=== PATIENT | male | born 1960 | race Caucasian/White ===

== ENCOUNTER 2017-11-14 11:49 | Emergency (ER) | payer OTHER ==
[~2017-11-14] VITALS: Ht 182.9 cm; Wt 103.9 kg
[~2017-11-14 11:49] MED LIST: ANDROGEL2.5 GM TD; CHLORTHALIDONE25 MG PO; COLESTID5 GM PO; PERCOCET 5-3251 EACH PO; PERCOCET 7.5-31 EACH PO; POTASSIUM CITR15 MEQ PO; PYRIDIUM200 MG PO; TAMSULOSIN HCL0.4 MG PO
[2017-11-14] MEDS ORDERED: PREDNISONE20 MG PO (13:11)
== END 2017-11-14 13:32 | disposition home or self-care (01) ==
LOC: ED 11:49
DX: T78.3XXA Angioneurotic edema, initial encounter (principal); Z88.8 Allergy status to other drugs, medicaments and biological substances; Z79.899 Other long term (current) drug therapy
CPT/HCPCS: 87081; 87880; 99283; J7512

== ENCOUNTER 2018-02-11 06:35 | Day surgery (SDC) | payer OTHER ==
[~2018-02-11] VITALS: Ht 182.9 cm; Wt 104.8 kg
[~2018-02-11 06:35] MED LIST changes: +24 HOUR ALLERG9.9 ML NAS; +BENZONATATE100 MG PO; +PREDNISONE20 MG PO; +VENTOLIN HFA18 GM INH; +VITAMIN D35000 UNI1 PO
--- NOTE | 2018-02-11 08:02 | NUR ---
02/11/[address] @ TALKING WITH PATIENT. PATIENT OPENS EYES AND RESPONDS APPROPRIATELY TO DR AND FALLS QUICKLY BACK TO SLEEP.
--- NOTE | 2018-02-11 11:42 | NUR ---
CONNECTED WITH PT'S ANDRES. SHE WAS RELAXED AND SEEMED INFORMED AND WAS PLEASED THAT THEIR SCHEDULE WORKED OUT FOR THIS SCOPE BEFORE HER SCHOOL BEGINS LATER THIS MONTH. EXTENDED A BLESSING, WILL FOLLOW NEEDED
--- NOTE | 2018-02-11 14:56 | OR ---
[facility] [address], [place] [address] Signed DATE OF OPERATION: 02/11/2018 SURGEON: Luisana Zaragoza MD PREOPERATIVE DIAGNOSES: 1. History of polyps x3, 2017. 2. Two tubular adenomas. 3. Diverticulosis. POSTOPERATIVE DIAGNOSIS: Diverticulosis. No sign of recurrent or new polyps. PROCEDURE PERFORMED: Total colonoscopy to cecum. ANESTHESIA: Intravenous sedation fentanyl 150 mcg, Versed 5 mg. INDICATION: A 57-year-old white man, patient of Dr. Wadsworth, underwent colonoscopy in 2017, where he was found to have three polyps, two of them tubular adenomas. He is also noted to have diverticula. He is symptom free currently. He is here for colonoscopy. He understands the risks of bleeding, infection, and perforation. FINDINGS: The prep was excellent. Complete colonoscopy was undertaken of the cecum without question. There were several diverticula scattered throughout the colon with no sign of recurrent or new polyp. DESCRIPTION OF PROCEDURE: The patient was brought to the endoscopy suite and placed in lateral decubitus position given intravenous sedation to the point of slurred speech and nystagmus. Digital rectal examination was normal. An Olympus video colonoscope was passed in the rectum and manipulated throughout the colon ultimately intubating the cecum itself. The ileocecal valve and appendiceal orifice were normal. The scope was withdrawn from that point. Examination throughout undertaken showed no sign of abnormality other than a few diverticula scattered including the transverse, left and sigmoid areas. Retroflexed view of the rectum was normal. Scope was removed. The patient was taken to recovery room in good condition. Electronically Signed By: LUISANA ZARAGOZA MD 02/11/18 1456 PATIENT NAME: FREDERIC TEJADA OPERATIVE REPORT DATE OF : 58 REPORT #: [id number] PHYSICIAN: LUISANA ZARAGOZA MD PCP: STEPHANIE WADSWORTH MD REPORT IS CONFIDENTIAL AND NOT TO BE RELEASED WITHOUT AUTHORIZATION [facility] [address], [place] [address] Signed CONCLUDING DIAGNOSIS: Scattered diverticula. No evidence of polyps. PLAN: Repeat colonoscopy in 5 years, sooner if clinically indicated. He will return to the ongoing care of Dr. Wadsworth. MD SARINA Mg/MODL /[id number] cc: Stephanie Wadsworth MD Copies: STEPHANIE WADSWORTH MD ~ Electronically Signed By: LUISANA ZARAGOZA MD 02/11/18 1456 PATIENT NAME: FREDERIC TEJADA KVNG OPERATIVE REPORT DATE OF : 58 REPORT #: [id number] PHYSICIAN: LUISANA ZARAGOZA MD PCP: STEPHANIE WADSWORTH MD REPORT IS CONFIDENTIAL AND NOT TO BE RELEASED WITHOUT AUTHORIZATION
== END 2018-02-11 08:50 | disposition home or self-care (01) ==
LOC: OPS 06:35 → DS 06:35 → OPS 06:45 → DS 06:45 → OPS 08:50
PROVIDERS: Surgery
PROC: 0DJD8ZZ Inspection of Lower Intestinal Tract, Via Natural or Artificial Opening Endoscopic (ICD-10-PCS; principal; 2018-02-11 06:45)
DX: Z12.11 Encounter for screening for malignant neoplasm of colon (principal); K57.30 Diverticulosis of large intestine without perforation or abscess without bleeding; K21.9 Gastro-esophageal reflux disease without esophagitis; G47.30 Sleep apnea, unspecified; Z86.010 Personal history of colon polyps; Z87.19 Personal history of other diseases of the digestive system; Z98.890 Other specified postprocedural states; Z88.8 Allergy status to other drugs, medicaments and biological substances
CPT/HCPCS: 99153; G0500; J2250; J3010; J7120

== ENCOUNTER 2020-03-12 22:10 | Emergency (ER) | payer OTHER ==
[~2020-03-12] VITALS: Ht 182.9 cm; Wt 99.8 kg
--- OUTSIDE RECORDS SUMMARY | ~2020-03-12 | XMS | Clinical Summary ---
Demographics + + + | Address | [address] | | | [place] [address] | + + + | Home Phone | | + + + | Preferred Language | Unknown | + + + | Marital Status | | + + + | Methodist Affiliation | 1013 | + + + | Race | White | + + + | Ethnic Group | Not or | + + + Author + + + | Author | [facility] | | | and [place] | + + + | Organization | [facility] | | | and [place] | + + + | Address | Unknown | + + + | Phone | Unavailable | + + + Support + + +---------+ + | Name | Relationship | Address | Phone | + + +---------+ + | Adriana Chivo Garcia | ECON | Unknown | | + + +---------+ + Care Team Providers + +------+ + | Care Procurement Director Name | Role | Phone | + +------+ + | Isai Wadsworth | PCP | | | MD | | | + +------+ + Allergies Not on File Medications Not on file Active Problems Not on file Social History + +-------+ +--------+------+ | Tobacco Use | Types | Packs/Day | Years | Date | | | | | Used | | + +-------+ +--------+------+ | Never Assessed | | | | | + +-------+ +--------+------+ + + + | Sex Assigned at | Date Recorded | | | | + + + | Not on file | | + + + Last Filed Vital Signs Not on file Plan of Treatment + + +-------+ + | Health Maintenance | Due Date | Last | Comments | | | | Done | | + + +-------+ + | Vaccine: | | | | | Dtap/Tdap/Td (1 - | 8 | | | | Tdap) | | | | + + +-------+ + | Vaccine: Zoster (1 | | | | | of 2) | 9 | | | + + +-------+ + | Vaccine: Influenza | | | | | (#1) | 0 | | | + + +-------+ + Results Not on filefrom Last 3 Months Insurance +-------+--------+ +--------+ + +------+ | Payer | Benefi | Subscriber | Effect | Phone | Address | Type | | | t Plan | ID | emory | | | | | | / | | Dates | | | | | | Group | | | | | | +-------+--------+ +--------+ + +------+ | MODA | MODA | [id number] | | [phone] | [address] | PPO | | | [place] | | [phone] | [phone] | | | | [place] | | esent | | [facility] | | | | [place] | | | | [place] [address] | | +-------+--------+ +--------+ + +------+ + +--------+ +--------+ + + | Guarantor Name | Accoun | Relation to | Date | Phone | Billing Address | | | t Type | Patient | of | | | | | | | | | | + +--------+ +--------+ + + | Shaquille Garcia | Person | Self [birth year] | [address] | | | al/Fam | | 1959 | [phone] | [place] | | | [place] | | | 8 (Home) | [address] | | | | | | [phone] | | | | | | | 1 (Work) | | + +--------+ +--------+ + + | Shaquille Garcia | Person | Self [birth year] | [address] | | | al/Fam | | 1959 | [phone] | [place] | | | [place] | | | 8 (Home) | [address] | + +--------+ +--------+ + + Advance Directives + + + + + | Type | Date Recorded | Patient | Explanation | | | | Mis Director | | + + + + + | Power of | | | | | Wirer Passenger Car | | | | + + + + + | Advance | | | | | Directive | | | | + + + + +"
--- OUTSIDE RECORDS SUMMARY | ~2020-03-12 | XMS | Clinical Summary ---
Demographics + + + | Address | [address] | | | [place] [address] | + + + | Home Phone | | + + + | Preferred Language | Unknown | + + + | Marital Status | | + + + | Zoroastrianism Affiliation | Unknown | + + + | Race | Unknown | + + + | Ethnic Group | Other Race | + + + Author + + + | Author | [facility] | + + + | Organization | [facility] | + + + | Address | Unknown | + + + | Phone | Unavailable | + + + Support + + +---------+ + | Name | Relationship | Address | Phone | + + +---------+ + | Riana Garcia | ECON | Unknown | | + + +---------+ + Care Team Providers + +------+ + | Care Field Adjuster Name | Role | Phone | + +------+ + | Isai Wadsworth MD | PCP | | + +------+ + Source Comments ANSLEY is fully live on both [facility] and [facility] Allergies Not on File Medications Not on [...] Signs Not on file Plan of Treatment +--------+---------+ + + + | Date | Type | Specialty | Care Team | Description | +--------+---------+ + + + | 03/26/ | Office | Cardiology | Buster Adan, | | | 2019 | Visit | | [address] | | | | | | [address] | | | | | | [place], [place] | | | | | | [address] | | | | | | [phone] | | | | | | | | +--------+---------+ + + + + + +-------+ + | Health Maintenance | Due Date | Last | Comments | | | | Done | | + + +-------+ + | Influenza (Flu) | | | | | vaccination (#1) | 0 | | | + + +-------+ + | Pneumococcal | Aged Out | | No longer eligible based on patient's age | | vaccination | | | to complete this topic | + + +-------+ + Results Not on filefrom Last 3 Months Insurance + +--------+ +--------+ + +------+ | Payer | Benefi | Subscriber | Effect | Phone | Address | Type | | | t Plan | ID | emory | | | | | | / | | Dates | | | | | | Group | | | | | | + +--------+ +--------+ + +------+ | MODA [employer] | MODA | [id number] | | [phone] | [address] | PPO | | | [place] | | [phone] | [phone] | | | | [place] | | esent | | [place], | | | | [place] | | | | [place] [address] | | + +--------+ +--------+ + +------+ + +--------+ +--------+ + + | Guarantor Name | Accoun | Relation to | Date | Phone | Billing Address | | | t Type | Patient | of | | | | | | | | | | + +--------+ +--------+ + + | Shaquille Garcia | Person | Self [birth year] | [address] | | | al/[place] | | 1959 | [phone] | [place] | | | [place] | | | 8 (Home) | [address] | | | | | | [phone] | | | | | | | 1 (Work) | | + +--------+ +--------+ + +"
--- OUTSIDE RECORDS SUMMARY | ~2020-03-12 | XMS | Encounter Summary ---
Demographics + + + | Address | [address] | | | [place] [address] | + + + | Home Phone | | + + + | Preferred Language | Unknown | + + + | Marital Status | | + + + | Sikhism Affiliation | 1013 | + + + | Race | White | + + + | Ethnic Group | Not or | + + + Author + + + | Author | [facility] | | | and [place] | + + + | Organization | [facility] | | | and [place] | + + + | Address | Unknown | + + + | Phone | Unavailable | + + + Support + + +---------+ + | Name | Relationship | Address | Phone | + + +---------+ + | Adriana Garcia | ECON | Unknown | | + + +---------+ + Care Team Providers + +------+ + | Care Conditioning Room Worker Name | Role | Phone | + +------+ + PCP | Unavailable | + +------+ + Encounter Details +--------+ + + + + | Date | Type | Department | Care Team | Description | +--------+ + + + + | 03/26/ | [facility] | [facility] | [facility] [place], | | | 2004 | Encounter | MED CTR XRAY [address] | | | | | [place] | [place] | | | | | [place] [address] | [address] | | | | | [phone] | | | +--------+ + + + + Social History + +-------+ +--------+------+ | Tobacco [...] on file | | + + + documented as of this encounter Plan of Treatment Not on filedocumented as of this encounter Visit Diagnoses Not on filedocumented in this encounter"
== END 2020-03-13 00:28 | disposition home or self-care (01) ==
LOC: ED 22:10
DX: N20.0 Calculus of kidney (principal); R31.9 Hematuria, unspecified; Z87.442 Personal history of urinary calculi; Z88.8 Allergy status to other drugs, medicaments and biological substances; Z79.899 Other long term (current) drug therapy
CPT/HCPCS: 74177; 80053; 81001; 85025; 99284-25; Q9967

== ENCOUNTER 2022-01-09 07:00 | Day surgery (SDC) | payer OTHER ==
[~2022-01-09] VITALS: Ht 182.9 cm; Wt 101.8 kg
[~2022-01-09 07:00] MED LIST changes: +CHOLEST OFF PL450 MG PO; +CRESTOR5 MG PO; +FLOMAX0.4 MG PO; +LOSARTAN POTAS100 MG PO; +NASAL DECONGEST10 MG PO; +TOPROL XL25 MG PO
[2022-01-09] MEDS ORDERED: ADULT LOW DOSE81 MG PO (07:20)
--- NOTE | 2022-01-09 09:44 | NUR ---
PT ALERT, ORIENTED AND SUPPORTED BY HIS ANDRES. PT IS IN SOME PAIN, READY TO HAVE STONE REMOVED. 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 REFERRED TO ANODE WORKER LUISANA WHEN HE VISITS AND MAY WANT TO FOLLOW UP ON PREVIOUS BILLING THAT INS WOULDN'T COVER. HAD PRAYER, GAVE BLESSING AND ENCOURAGEMENT. WILL FOLLOW NEEDED
--- NOTE | 2022-01-09 11:29 | NUR ---
01/09/22 1129 Nichelle Handley 1102 PT ARRIVED IN PACU NON RESPONSIVE TO NOXIOUS STIMULI WITH OPA IN PLACE. CHIN LIFT HELD BY RN. 1116 PT REACTIVE. OPA REMOVED.
--- NOTE | 2022-01-09 13:49 | NUR ---
1210 PATIENT BACK FROM PACU. REPORT RECIEVED FROM LOIDA VILLEDA. PATIENT BREATHING EQUAL AND UNLABORED. OXYGEN SATURATIONS ABOVE 95% ON ROOM AIR. NO DRAINAGE AT SURGICAL SITE. PATIENT COMPLAINS OF PAIN AT SURGICAL SITE DENIES NEEDING ANYTHING AT THIS TIME FOR PAIN. AT BEDSIDE. 1215 PATIENT DRINKING WATER AND EATING CRACKERS. 1300 PATIENT UP TO THE BATHROOM TO VOID. RED AND CLEAR URINE. PATIENT AMBULATED AND TOLERATED IT WELL. COMPLAINING OF PAIN WHILE VOIDED. PRN AZO PAIN. AT BEDSIDE NO QUESTIONS AT THIS TIME.
--- NOTE | 2022-01-09 14:10 | NUR ---
CONNECTING WITH PT AND SPOUSE ANDRES POST-OP. PT JUST BACK FROM [place]-HAS SOME PAIN-SAID HE IS A LITTLE DIZZY. GAVE ENCOURAGEMENT, AND INFORMED THEM TO BE SURE THEY UNDERSTAND HOME INSTRUCTIONS AT [place]. THEY BOTH ACKNOWLEDGE. WILL FOLLOW NEEDED
--- NOTE | 2022-01-09 15:04 | NUR ---
1340 VITAL SIGNS COMPLETE. PATIENT IS ALERT AND ORIENTED. BREATHING EQUAL AND UNLABORED. PATIENT OXYGEN SATURATIONS ABOVE 95%. SURGICAL SITE HAS NO DRAINAGE. PATIENT STATES PAIN IS IMPROVING. DENIES ANY NAUSEA. AT BEDSIDE. 1410 PATIENT HAS MET DISCHARGE CRITERIA. UNDERSTOOD INSTRUCTIONS AND HAD NO QUESTIONS. IV D/C'D. NO QUESTIONS AT THIS TIME. PATIENT DRESSED SELF AND WAS WHEELED OUT OF FACILITY WITH PRESENT.
--- NOTE | 2022-01-10 19:41 | OR ---
[facility] [address] [facility] [place] [place] [address] Signed DATE OF OPERATION: 01/09/2022 SURGEON: Merry Vela MD PREOPERATIVE DIAGNOSES: 1. A 5 mm left ureteropelvic junction calculus. 2. Persistent and severe left-sided flank pain. POSTOPERATIVE DIAGNOSES: 1. A 5 mm left ureteropelvic junction calculus. 2. Persistent and severe left-sided flank pain. NAMES OF PROCEDURES: 1. Diagnostic cystoscopy with left retrograde pyelogram. 2. Left nephroureteroscopy with laser lithotripsy and basket extraction of stone fragments. 3. Insertion of a 6 x 26 cm double-J ureteral stent into the left collecting system. ANESTHESIA: General. ESTIMATED BLOOD LOSS: Minimal. COMPLICATIONS: None. SPECIMENS: Fragments of two 5 mm stones sent to the lab for stone analysis. DRAINS: A 6 x 26 double-J ureteral stent inserted into the left collecting system. INDICATIONS FOR PROCEDURE: Mr. Tejada is a very pleasant 61-year-old gentleman with a previous history of nephrolithiasis, who presented to my clinic a few days ago with severe left-sided flank pain and nausea and vomiting. He reported sudden onset flank pain earlier last week and underwent a CT scan, which revealed a 5 mm calculus at the level of the UPJ and poised to descend into the left ureter. There was no evidence of any active obstruction or hydronephrosis at the time of the CT scan. The patient initially attempted a voiding Electronically Signed By: MERRY VELA MD 01/10/221940 PATIENT NAME: FREDERIC TEJADA OPERATIVE REPORT DATE OF : 58 REPORT #: [id number] PHYSICIAN: MERRY VELA MD PCP: MAJO JULES MD REPORT IS CONFIDENTIAL AND NOT TO BE RELEASED WITHOUT AUTHORIZATION [facility] [address] [place], [place] [address] Signed trial with Flomax and NSAIDs. However, this was unsuccessful. Overall, he is uncomfortable taking oral narcotic medication and has been attempting to pass the stone with [id number] medications. He is scheduled to go on a work trip in [place] in approximately two weeks, so by the time he saw me in clinic, he was requesting extraction of his left ureteropelvic junction calculus. After discussion of the risks and benefits of the procedure, he agreed to proceed. FINDINGS: On cystoscopy, there was no evidence of any suspicious masses, lesions, or stones. Bilateral ureteral orifices are in their normal anatomic location. I do not appreciate any active efflux from either ureter. There is no evidence of any bladder wall trabeculation. Left retrograde pyelogram revealed a patent left ureter and left UPJ. Presumably, at this time, the stone has been pushed back into the left renal pelvis which is where it was initially found on ureteroscopy. There are no other filling defects or any calyceal abnormalities noted on the retrograde pyelogram. Left flexible nephroscopy revealed the presence of a 5 mm stone within the left renal pelvis. Another stone also measuring around 5 mm was noted in the mid pole calyx. Both stones were fragmented using a holmium laser at 8 and 1 settings. 100% of the stone burden was successfully extracted from the patient's left kidney during today's procedure. At the end of the procedure, a 6 x 26 cm double-J ureteral stent was inserted into the left ureter under direct visualization. DESCRIPTION OF PROCEDURE: After informed consent was obtained, the patient was taken back to the operating room. He was transferred from the [facility] to the operating room table, where general anesthesia was induced. He was placed in the dorsal lithotomy position and his genitalia were prepped and draped in a standard sterile fashion. Using a 30-degree lens on a 22.5-Israeli introducer, a rigid cystoscope was inserted through his urethra and into his bladder under direct visualization. Panendoscopic views of the bladder were then obtained. Please see the above findings. Attention was then turned to the left ureteral orifice. A cone-tipped catheter was advanced up to the level of the left ureteral orifice and a left retrograde pyelogram was performed. Please see above findings. I then passed a 0.035 Sensor wire through the left ureter and up into the left collecting system without difficulty. Adequate placement of the wire was confirmed on fluoroscopy. Over the wire, I passed a 11/ ureteral access sheath into the left ureter, again without difficulty. Fluoroscopy confirmed adequate placement of the sheath and I was able to repeat a left retrograde pyelogram. The wire was then removed and then I advanced a flexible ureteroscope up into the left proximal ureter and left renal pelvis. A thorough diagnostic nephroscopy was performed. I visualized a 5 mm Electronically Signed By: MERRY VELA MD 01/10/221940 PATIENT NAME: FREDERIC TEJADA OPERATIVE REPORT DATE OF : 58 REPORT #: [id number] PHYSICIAN: MERRY VELA MD PCP: MAJO JULES MD REPORT IS CONFIDENTIAL AND NOT TO BE RELEASED WITHOUT AUTHORIZATION [address] [address] Signed stone within the left renal pelvis proper along with another approximately 4 to 5 mm stone within the mid pole calyx on the left side. Both stones were fragmented using a holmium laser with only [id number] difficulty. Laser settings were 8 hertz and 1 joule, using a 270 micron fiber. Once fragmentation was complete, all of the stone fragments were successfully extracted from the left kidney using a Zero tip basket. 100% of the stone burden was successfully extracted today. I removed the ureteroscope and left the sheath in place. I inserted a 0.035 Sensor wire through the sheath and into the left renal pelvis. The sheath was then removed fully intact. Over the wire, I passed a 6 x 26 cm double-J ureteral stent into the left collecting system under direct visualization without difficulty. Once I pulled the wire, an adequate proximal coil was seen within the left renal pelvis. An adequate distal coil was seen on cystoscopy. The ureteral stent was placed with a string attached. The string was attached to the external genitalia using Mastisol and Steri-Strips. The patient's bladder was then drained and the cystoscope was removed. The procedure was then terminated. The patient tolerated the procedure well without any complication. He will now be transferred to the postanesthesia care unit in stable condition. DISPOSITION: I discussed the details of today's procedure with the patient's and answered all of her questions. I did notify her that all of the stone burden was successfully extracted from the patient's kidney today and that he will need to remove his indwelling stent using the string attached in five days, which would be January 14, 2022. He will be sent home today with a few additional oxycodone pills, although he never filled the initial prescription I gave him for the oxycodone 5 mg. More than anything else, I told the that he does need to take the Levaquin 500 mg p.o. daily for the next seven days to prevent risk of surgery and/or ureteroscopy related UTI. He will be scheduled return to clinic to see me postoperatively in approximately two months, at that time, we will discuss the results of his stone analysis.. MD ISA Carranza/MODL /[id number] Electronically Signed By: MERRY VELA MD 01/10/221940 PATIENT NAME: FREDERIC TEJADA OPERATIVE REPORT DATE OF : 58 REPORT #: [id number] PHYSICIAN: MERRY VELA MD PCP: MAJO JULES MD REPORT IS CONFIDENTIAL AND NOT TO BE RELEASED WITHOUT AUTHORIZATION [facility] [address] [place] [address] Signed Copies: ~ Electronically Signed By: MERRY VELA MD 01/10/221940 PATIENT NAME: FREDERIC TEJADA OPERATIVE REPORT DATE OF : 58 REPORT #: [id number] PHYSICIAN: MERRY VELA MD PCP: MAJO JULES MD REPORT IS CONFIDENTIAL AND NOT TO BE RELEASED WITHOUT AUTHORIZATION
== END 2022-01-09 14:10 | disposition home or self-care (01) ==
LOC: DS 07:00
PROVIDERS: ATTEND Urology
PROC: 0TC48ZZ Extirpation of Matter from Left Kidney Pelvis, Via Natural or Artificial Opening Endoscopic (ICD-10-PCS; principal; 2022-01-09 09:40)
PROC: 0T778DZ Dilation of Left Ureter with Intraluminal Device, Via Natural or Artificial Opening Endoscopic (ICD-10-PCS; 2022-01-09 09:40)
DX: N20.2 Calculus of kidney with calculus of ureter (principal); Z88.8 Allergy status to other drugs, medicaments and biological substances
CPT/HCPCS: 74420; 82365; C1769; C2617; J0461; J0696; J1100; J1160; J1885; J2250; J2405; J2704; J2765; J3010; J7121; Q9967

== ENCOUNTER 2022-01-16 12:09 | Emergency (ER) | payer OTHER ==
[~2022-01-16] VITALS: Ht 182.9 cm; Wt 101.6 kg
[~2022-01-16 12:09] MED LIST changes: +ADULT LOW DOSE81 MG PO
[2022-01-16] MEDS ORDERED: LEVOFLOXACIN500 MG PO (12:33)
--- OUTSIDE RECORDS SUMMARY | 2022-01-16 16:40 | XMS ---
PreManage Notification: FREDERIC TEJADA Security Surveying Or Spatial Science Technician Events No recent Security Events currently on file CRITERIA MET - ALEJANDRINAP CARE PROVIDERS FREDERIC TIJERINA [facility] Current PHONE: [phone] Haley has no Care Guidelines for this patient. EDemarco VISIT COUNT (12 MO.) 1 [place] [place] TOTAL 1 NOTE: Visits indicate total known visits. ED/UCC VISIT TRACKING (12 MO.) 01/16/2022 12:10 [facility] [place] TYPE: Emergency COMPLAINT: - POST OP PROBLEM INPATIENT VISIT TRACKING (12 MO.) No inpatient visits to display in this time frame [email or web address]
== END 2022-01-16 15:09 | disposition home or self-care (01) ==
LOC: ED 12:09
DX: U07.1 COVID-19 (principal); Z88.8 Allergy status to other drugs, medicaments and biological substances; Z79.899 Other long term (current) drug therapy; Z79.82 Long term (current) use of aspirin; Z87.442 Personal history of urinary calculi
CPT/HCPCS: 81001; 87502; 99283; C9803; U0003

== ENCOUNTER 2022-07-04 13:06 | Day surgery (SDC) | payer OTHER ==
[~2022-07-04] VITALS: Ht 182.9 cm; Wt 104.5 kg
[~2022-07-04 13:06] MED LIST changes: +AEROCHAMBER PL1 EAC2 INH; +LEVOFLOXACIN500 MG PO
--- NOTE | 2022-07-04 16:05 | NUR ---
07/04/22 1605 Nichelle Handley 1411 PT ARRIVED IN PACU SLEEPY WITH NO C/O'S. ABD SOFT AND PASSING FLATUS. [address] AT BEDSIDE. 1500 SITTING UP IN BED SIPPING ON WATER. 1515 GETTING DRESSED. 1525 DC INSTRUCTIONS GIVEN. ALL QUESTIONS ANSWERED. LEFT VIA W/C.
--- NOTE | 2022-07-04 16:27 | OR ---
[facility] [address], [place] [address] Signed DATE OF OPERATION: 07/04/2022 SURGEON: Liusana Zaragoza MD PREOPERATIVE DIAGNOSES: 1. Colon screening. 2. Posterior thoracic inflamed epidermal inclusion cyst. POSTOPERATIVE DIAGNOSES: 1. Small polyp of rectosigmoid (excised). 2. Sigmoid diverticulosis. PROCEDURE: Total colonoscopy to cecum with intubation of ileum and cold morcellation polypectomy x1. ANESTHESIA: Intravenous sedation, fentanyl 100 mcg and Versed 8 mg. INDICATIONS: This 62-year-old white man is a patient of Dr. Frederic Tijerina. He underwent colonoscopy in 2017, where he was found to have a tubular adenoma. Subsequent colonoscopy in 2018 was normal. He is symptom free, but surveillance colonoscopy has been recommended. He has no symptoms of bleeding, diarrhea, or constipation. The patient is additionally noted inflammation and irritation of an area of his posterior thorax in the superior aspect. Clinical examination shows an inflamed epidermal inclusion cyst with mild fluctuance in the central portion. This will be addressed at a later date (tomorrow). DESCRIPTION OF PROCEDURE: The patient was brought to the endoscopy suite and placed in lateral decubitus position given intravenous sedation to the point of slurred speech and nystagmus. Digital rectal examination was normal. An Olympus video colonoscope was passed per rectum and manipulated throughout the colon, noting diverticular change of the sigmoid. The scope was then advanced to the cecum. The ileocecal valve and appendiceal orifice were normal. The ileum was intubated without problem and the ileal mucosa was normal as well. The scope was then withdrawn. Examination throughout showed no sign of abnormality other than a few scattered diverticula. The rectosigmoid was a very small adenomatous appearing polyp. This was Electronically Signed By: LUISANA ZARAGOZA MD 07/04/22 1627 PATIENT NAME: FREDERIC TEJADA OPERATIVE REPORT DATE OF : 58 REPORT #: [id number] PHYSICIAN: LUISANA ZARAGOZA MD PCP: FREDERIC TIJERINA MD REPORT IS CONFIDENTIAL AND NOT TO BE RELEASED WITHOUT AUTHORIZATION [facility] [address], [place] [address] Signed excised with cold morcellation technique. Further withdrawal showed no other findings of concern. The scope was removed. The patient was taken to the recovery room in good condition. CONCLUDING DIAGNOSES: 1. Polyps x1, rectosigmoid, excised. 2. Diverticulosis (minimal). 3. Epidermal inclusion cyst with infection and probable abscess formation with central fluctuance. PLAN: We will see him in the office tomorrow at approximately 01:30, at which time incision and drainage of the abscess to be undertaken. The patient is already self medicated with cephalexin. He will put a moist heat on the site today and tonight and we will deal with epidermal inclusion cyst tomorrow in the office. We will repeat colonoscopy in 5 years or sooner if clinically indicated based on symptoms and signs, and he should maintain a high-fiber diet. MD SARINA Mg/ANIRUDH /[id number] cc: Frederic Tijerina MD Copies: FREDERIC TIJERINA DMD ~ Electronically Signed By: LUISANA ZARAGOZA MD 07/04/22 1627 PATIENT NAME: FREDERIC TEJADA OPERATIVE REPORT DATE OF : 58 REPORT #: [id number] PHYSICIAN: LUISANA ZARAGOZA MD PCP: FREDERIC TIJERINA MD REPORT IS CONFIDENTIAL AND NOT TO BE RELEASED WITHOUT AUTHORIZATION
== END 2022-07-04 15:25 | disposition home or self-care (01) ==
LOC: DS 13:06 → OPS 13:06 → DS 14:00 → OPS 15:25
PROVIDERS: ATTEND Surgery
PROC: 0DBB8ZX Excision of Ileum, Via Natural or Artificial Opening Endoscopic, Diagnostic (ICD-10-PCS; principal; 2022-07-04 13:45)
DX: Z12.11 Encounter for screening for malignant neoplasm of colon (principal); M79.89 Other specified soft tissue disorders; K63.5 Polyp of colon; K57.30 Diverticulosis of large intestine without perforation or abscess without bleeding; Z86.010 Personal history of colon polyps; Z87.19 Personal history of other diseases of the digestive system; Z88.8 Allergy status to other drugs, medicaments and biological substances
CPT/HCPCS: 99153; G0500; J2250; J3010; J7121

== ENCOUNTER 2023-01-11 14:50 | Emergency (ER) | payer OTHER ==
--- OUTSIDE RECORDS SUMMARY | ~2023-01-11 | XMS | Continuity of Care Document ---
Demographics + + + | Address | [address] | | | [place] [address] | + + + | Preferred Language | Unknown | + + + | Marital Status | | + + + | Latter Day Affiliation | Unknown | + + + | Race | White | + + + | Ethnic Group | Not or | + + + Author + + + | Author | [facility] | + + + | Organization | [facility] | + + + | Address | [address] | | | [place] [address] | + + + | Phone | | + + + Care Team Providers + + + + | Care Firmware Engineer Name | Role | Phone | + + + + Unavailable | Unavailable | + + + + Unavailable | Unavailable | + + + + Unavailable | Unavailable | + + + + Unavailable | Unavailable | + + + + Unavailable | Unavailable | + + + + Unavailable | Unavailable | + + + + Allergies and Intolerances + + + + + + | date | description | facility | reaction | severity | + + + + + + | (no date) | Terfenadine | [facility] | (no reaction) | (no severity) | | | | [facility] | | | + + + + + + | (no date) | Terfenadine | [facility] | (no reaction) | (no severity) | | | | [facility] | | | + + + + + + | (no date) | terfenadine | [facility] | (no reaction) | (no severity) | | | | [facility] | | | + + + + + + | (no date) | Terfenadine | [facility] | (no reaction) | (no severity) | | | | [facility] | | | + + + + + + | (no date) | TERFENADINE | [facility] | (no reaction) | (no severity) | | | [facility] | | | + + + + + + Encounters No information. Functional Status No information. Immunizations No information. Medications + + + + | date | description | facility | + + + + | 2022-01-12 00:00 | COLESTIPOL HCL | [facility] | + + + + | 2022-01-16 00:00 | COLESTIPOL HCL | [facility] | + + + + | 2013-05-20 00:00 | OXYCODONE | [facility] | | | HCL/ACETAMINOPHEN | | + + + + | 2013-05-20 00:00 | OXYCODONE | [facility] | | | HCL/ACETAMINOPHEN | | + + + + | 2013-05-20 00:00 | OXYCODONE | [facility] | | | HCL/ACETAMINOPHEN | | + + + + | 2022-01-12 00:00 | OXYCODONE | [facility] | | | HCL/ACETAMINOPHEN | | + + + + | 2022-01-16 00:00 | OXYCODONE | [facility] | | | HCL/ACETAMINOPHEN | | + + + + | 2022-07-04 00:00 | OXYCODONE | [facility] | | | HCL/ACETAMINOPHEN | | + + + + | 2022-01-12 00:00 | OXYCODONE | [facility] | | | HCL/ACETAMINOPHEN | | + + + + | 2022-01-16 00:00 | OXYCODONE | [facility] | | | HCL/ACETAMINOPHEN | | + + + + | 2022-07-04 00:00 | OXYCODONE | [facility] | | | HCL/ACETAMINOPHEN | | + + + + | 2022-01-12 00:00 | PLANT STANOL MONY | [facility] | + + + + | 2022-01-16 00:00 | PLANT STANOL MONY | [facility] | + + + + | 2022-01-12 00:00 | Fluticasone Propionate | [facility] | + + + + | 2022-01-16 00:00 | Fluticasone Propionate | [facility] | + + + + | 2022-07-04 00:00 | Fluticasone Propionate | [facility] | + + + + | 2022-01-12 00:00 | BENZONATATE | [facility] | + + + + | 2022-01-16 00:00 | BENZONATATE | [facility] | + + + + | 2022-07-04 00:00 | BENZONATATE | [facility] | + + + + | 2022-01-12 00:00 | CHLORTHALIDONE | [facility] | + + + + | 2022-01-16 00:00 | CHLORTHALIDONE | [facility] | + + + + | 2022-07-04 00:00 | CHLORTHALIDONE | [facility] | + + + + | 2022-01-16 00:00 | LEVOFLOXACIN | [facility] | + + + + | 2022-01-12 00:00 | ASPIRIN | [facility] | + + + + | 2022-01-16 00:00 | ASPIRIN | [facility] | + + + + | 2017-11-14 00:00 | predniSONE | [facility] | + + + + | 2017-11-14 00:00 | predniSONE | [facility] | + + + + | 2017-11-14 00:00 | predniSONE | [facility] | + + + + | 2022-01-12 00:00 | CHOLECALCIFEROL (VITAMIN | [facility] | | | D3) | | + + + + | 2022-01-16 00:00 | CHOLECALCIFEROL (VITAMIN | [facility] | | | D3) | | + + + + | 2022-07-04 00:00 | CHOLECALCIFEROL (VITAMIN | [facility] | | | D3) | | + + + + | 2022-01-12 00:00 | ALBUTEROL SULFATE | [facility] | + + + + | 2022-01-16 00:00 | ALBUTEROL SULFATE | [facility] | + + + + | 2022-07-04 00:00 | ALBUTEROL SULFATE | [facility] | + + + + | 2022-01-12 00:00 | ROSUVASTATIN CALCIUM | [facility] | + + + + | 2022-01-16 00:00 | ROSUVASTATIN CALCIUM | [facility] | + + + + | 2022-07-04 00:00 | ROSUVASTATIN CALCIUM | [facility] | + + + + | 2022-01-12 00:00 | TAMSULOSIN HCL | [facility] | + + + + | 2022-01-16 00:00 | TAMSULOSIN HCL | [facility] | + + + + | 2022-07-04 00:00 | TAMSULOSIN HCL | [facility] | + + + + | 2022-01-12 00:00 | TAMSULOSIN HCL | [facility] | + + + + | 2022-01-16 00:00 | TAMSULOSIN HCL | [facility] | + + + + | 2022-07-04 00:00 | TAMSULOSIN HCL | [facility] | + + + + | 2022-01-12 00:00 | METOPROLOL SUCCINATE | [facility] | + + + + | 2022-01-16 00:00 | METOPROLOL SUCCINATE | [facility] | + + + + | 2022-07-04 00:00 | METOPROLOL SUCCINATE | [facility] | + + + + | 2022-01-12 00:00 | POTASSIUM CITRATE | [facility] | + + + + | 2022-01-16 00:00 | POTASSIUM CITRATE | [facility] | + + + + | 2022-07-04 00:00 | POTASSIUM CITRATE | [facility] | + + + + | 2022-01-12 00:00 | LOSARTAN POTASSIUM | [facility] | + + + + | 2022-01-16 00:00 | LOSARTAN POTASSIUM | [facility] | + + + + | 2022-07-04 00:00 | LOSARTAN POTASSIUM | [facility] | + + + + Problems + + + + | date | description | facility | + + + + | 2014-09-25 00:00 | Dyspnea | [facility] | + + + + | 2014-09-25 00:00 | Dyspnea | [facility] | + + + + | 2014-09-25 00:00 | Dyspnea | [facility] | + + + + | 2014-09-25 00:00 | Abdominal bloating | [facility] | + + + + | 2014-09-25 00:00 | Abdominal bloating | [facility] | + + + + | 2014-09-25 00:00 | Abdominal bloating | [facility] | + + + + | 2014-09-25 00:00 | Weakness | [facility] | + + + + | 2014-09-25 00:00 | Weakness | [facility] | + + + + | 2014-09-25 00:00 | Weakness | [facility] | + + + + | 2020-03-13 00:00 | Calculus of left kidney | [facility] | + + + + | 2020-03-13 00:00 | Calculus of left kidney | [facility] | + + + + | 2020-03-13 00:00 | Calculus of left kidney | [facility] | + + + + | 2020-03-13 00:00 | Painless hematuria | [facility] | + + + + | 2020-03-13 00:00 | Painless hematuria | [facility] | + + + + | 2020-03-13 00:00 | Painless hematuria | [facility] | + + + + | 2021-06-22 10:36:28 | Cardiomyopathy, | [facility] | | | unspecified | | + + + + | 2022-01-16 00:00 | Infection due to severe | [facility] | | | acute respiratory syndrome | | | | coronavirus 2 (SARS-CoV-2) | | + + + + | 2022-01-16 00:00 | Infection due to severe | [facility] | | | acute respiratory syndrome | | | | coronavirus 2 (SARS-CoV-2) | | + + + + Procedures + + + + | date | description | facility | + + + + | 2022-01-09 00:00 | DILATION OF LEFT URETER | [facility] | | | WITH INTRALUMINAL DEVICE, | | | | ENDO | | + + + + | 2022-01-09 00:00 | DILATION OF LEFT URETER | [facility] | | | WITH INTRALUMINAL DEVICE, | | | | ENDO | | + + + + | 2022-01-09 00:00 | EXTIRPATION OF MATTER FROM | [facility] | | | LEFT KIDNEY PELVIS, ENDO | | + + + + | 2022-01-09 00:00 | EXTIRPATION OF MATTER FROM | [facility] | | | LEFT KIDNEY PELVIS, ENDO | | + + + + | 2022-01-09 00:00 | CYSTO/URETERO | [facility] | | | W/LITHOTRIPSY | | + + + + | 2022-01-09 00:00 | CYSTO/URETERO | [facility] | | | W/LITHOTRIPSY | | + + + + Results/Labs +--------+--------+ +---------+--------+---------+ | test | date | facility | value | unit | notes | +--------+--------+ +---------+--------+---------+ + + | Result panel 1 | + + + + +-------+ + + + | | 2021-06-22 | [facility] | (missing) | (missing) | (missing) | | (unavailable | 11:09:48 | | | | | | ) | | | | | | + + +-------+ + + + | | 2021-06-22 | [facility] | 1. Normal | (missing) | (missing) | | (unavailable | 11:09:48 | | LV size with | | | | ) | | | low-normal | | | | | | | global LV | | | | | | | systolic | | | | | | | dysfunction. | | | | | | | | | | + + +-------+ + + + | | 2021-06-22 | [facility] | [address] | (missing) | (missing) | | (unavailable | [address] | | Street | | | | ) | | | | | | + + +-------+ + + + | | 2021-06-22 | [facility] | 2. | (missing) | (missing) | | (unavailable | ::48 | | Paradoxical | | | | ) | | | septal | | | | | | | motion | | | | | | | consistent | | | | | | | with the | | | | | | | patient's | | | | | | | bundle | | | + + +-------+ + + + | | 2021-06-22 | [facility] | 2021-06-22 | (missing) | (missing) | | (unavailable | 11:09:48 | | 18:13:55 PST | | | | ) | | | | | | + + +-------+ + + + | | 2021-06-22 | [facility] | 2D/M Mode | (missing) | (missing) | | (unavailable | 11:09:48 | | | | | | ) | | | | | | + + +-------+ + + + | | 2021-06-22 | [facility] | 3. Mild | (missing) | (missing) | | (unavailable | :09:48 | | left atrial | | | | ) | | | enlargement. | | | | | | | | | | + + +-------+ + + + | | 2021-06-22 | [facility] | 4. Mild | (missing) | (missing) | | (unavailable | :09:48 | | aortic valve | | | | ) | | | | | | | | | | regurgitatio | | | | | | | n. | | | + + +-------+ + + + | | 2021-06-22 | [facility] | 5. Normal | (missing) | (missing) | | (unavailable | 11:09:48 | | right atrial | | | | ) | | | pressure | | | | | | | estimate. | | | + + +-------+ + + + | | 2021-06-22 | [facility] | | (missing) | (missing) | | (unavailable | 11::48 | | [phone] | | | | ) | | | | | | + + +-------+ + + + | | 2021-06-22 | [facility] | 6. Compared | (missing) | (missing) | | (unavailable | 11::48 | | with [facility] | | | | ) | | | echocardiogr | | | | | | | am report | | | | | | | 06/18/2020, | | | | | | | no change of | | | | | | | | | | + + +-------+ + + + | | 2021-06-22 | [facility] | AV Mean PG | (missing) | (missing) | | (unavailable | 11:09:48 | | 4.00 [ 2.00 | | | | ) | | | - 4.00 ] | | | | | | | mmHg | | | + + +-------+ + + + | | 2021-06-22 | [facility] | AV Mean Gary | (missing) | (missing) | | (unavailable | 11:09:48 | | 90.80 [ | | | | ) | | | 70.00 - | | | | | | | 90.00 ] cm/s | | | | | | | | | | + + +-------+ + + + | | 2021-06-22 | [facility] | AV Peak PG | (missing) | (missing) | | (unavailable | 11:09:48 | | 6.00 [ 2.00 | | | | ) | | | - 9.00 ] | | | | | | | mmHg | | | + + +-------+ + + + | | 2021-06-22 | [facility] | AV Peak Gary | (missing) | (missing) | | (unavailable | 11:09:48 | | 121.00 [ | | | | ) | | | 100.00 - | | | | | | | 170.00 ] | | | | | | | cm/s | | | + + +-------+ + + + | | 2021-06-22 | [facility] | AV VTI 31.2 | (missing) | (missing) | | (unavailable | 11::48 | | cm | | | | ) | | | | | | + + +-------+ + + + | | 2021-06-22 | [facility] | FERMIN by VTI | (missing) | (missing) | | (unavailable | ::48 | | 3.9 cm2 | | | | ) | | | | | | + + +-------+ + + + | | 2021-06-22 | [facility] | FERMIN by | (missing) | (missing) | | (unavailable | ::48 | | Velocity 4.3 | | | | ) | | | cm2 | | | + + +-------+ + + + | | 2021-06-22 | [facility] | Additional | (missing) | (missing) | | (unavailable | 11:09:48 | | Procedures: | | | | ) | | | | | | + + +-------+ + + + | | 2021-06-22 | [facility] | AoR Diam 2D | (missing) | (missing) | | (unavailable | 11:09:48 | | 3.3 [ 2.6 - | | | | ) | | | 3.7 ] cm | | | + + +-------+ + + + | | 2021-06-22 | [facility] | Aorta: | (missing) | (missing) | | (unavailable | 11::48 | | | | | | ) | | | | | | + + +-------+ + + + | | 2021-06-22 | [facility] | Aortic | (missing) | (missing) | | (unavailable | 11:09:48 | | Valve: | | | | ) | | | | | | + + +-------+ + + + | | 2021-06-22 | [facility] | Atrial | (missing) | (missing) | | (unavailable | 11:09:48 | | Septum: | | | | ) | | | | | | + + +-------+ + + + | | 2021-06-22 | [facility] | BSA: 2.31 | (missing) | (missing) | | (unavailable | 11:09:48 | | Weight(Kg): | | | | ) | | | 105.2 | | | + + +-------+ + + + | | 2021-06-22 | [facility] | [id number] - | (missing) | (missing) | | (unavailable | 11:09:48 | | Complete | | | | ) | | | transthoraci | | | | | | | c 2D, | | | | | | | M-mode, | | | | | | | spectral and | | | | | | | color flow | | | + + +-------+ + + + | | 2021-06-22 | [facility] | CC: | (missing) | (missing) | | (unavailable | 11:09:48 | | | | | | ) | | | | | | + + +-------+ + + + | | 2021-06-22 | [facility] | | (missing) | (missing) | | (unavailable | 11:09:48 | | Conclusions: | | | | ) | | | | | | + + +-------+ + + + | | 2021-06-22 | [facility] | : | (missing) | (missing) | | (unavailable | :48 | | 1960 | | | | ) | | | Study Date: | | | | | | | 06/22/2021 | | | | | | | 48 AM | | | + + +-------+ + + + | | 2021-06-22 | [facility] | Doppler | (missing) | (missing) | | (unavailable | 48 | | echocardiogr | | | | ) | | | am with | | | | | | | contrast for | | | | | | | left | | | | | | | ventricular | | | + + +-------+ + + + | | 2021-06-22 | [facility] | Doppler | (missing) | (missing) | | (unavailable | 48 | | | | | | ) | | | | | | + + +-------+ + + + | | 2021-06-22 | [facility] | EF Mod BP | (missing) | (missing) | | (unavailable | 11:09:48 | | 65.0 [ 52.0 | | | | ) | | | - 72.0 ] | | | | | | | percent | | | + + +-------+ + + + | | 2021-06-22 | [facility] | | (missing) | (missing) | | (unavailable | 11:09:48 | | Echocardiogr | | | | ) | | | aphic Report | | | | | | | | | | + + +-------+ + + + | | 2021-06-22 | [facility] | | (missing) | (missing) | | (unavailable | 11:09:48 | | Echocardiogr | | | | ) | | | aphic | | | | | | | Report: | | | + + +-------+ + + + | | 2021-06-22 | [facility] | | (missing) | (missing) | | (unavailable | 11:09:48 | | Electronical | | | | ) | | | ly Signed | | | | | | | By: | | | + + +-------+ + + + | | 2021-06-22 | [facility] | Evaluate | (missing) | (missing) | | (unavailable | ::48 | | left | | | | ) | | | ventricular | | | | | | | systolic | | | | | | | function. | | | + + +-------+ + + + | | 2021-06-22 | [facility] | Findings: | (missing) | (missing) | | (unavailable | 11:09:48 | | | | | | ) | | | | | | + + +-------+ + + + | | 2021-06-22 | [facility] | Gender: M | (missing) | (missing) | | (unavailable | 11:09:48 | | Accession #: | | | | ) | | | [id number] | | | + + +-------+ + + + | | 2021-06-22 | [facility] | IVC: | (missing) | (missing) | | (unavailable | 11:09:48 | | | | | | ) | | | | | | + + +-------+ + + + | | 2021-06-22 | [facility] | IVS/LVPW 2D | (missing) | (missing) | | (unavailable | ::48 | | 1.0 [ 1.0 - | | | | ) | | | 2.0 ] ratio | | | | | | | | | | + + +-------+ + + + | | 2021-06-22 | [facility] | IVSd 2D 0.9 | (missing) | (missing) | | (unavailable | :09:48 | | [ 0.6 - 1.0 | | | | ) | | | ] cm | | | + + +-------+ + + + | | 2021-06-22 | [facility] | | (missing) | (missing) | | (unavailable | 11:09:48 | | Indications: | | | | ) | | | | | | + + +-------+ + + + | | 2021-06-22 | [facility] | LA Dimen 2D | (missing) | (missing) | | (unavailable | 11:09:48 | | 3.2 [ 3.0 - | | | | ) | | | 4.0 ] cm | | | + + +-------+ + + + | | 2021-06-22 | [facility] | LA Vol 2Cs | (missing) | (missing) | | (unavailable | 11:09:48 | | 94.0 | | | | ) | | | | | | + + +-------+ + + + | | 2021-06-22 | [facility] | LA Vol 4Cs | (missing) | (missing) | | (unavailable | 11:09:48 | | 76.0 | | | | ) | | | | | | + + +-------+ + + + | | 2021-06-22 | [facility] | LA Volume | (missing) | (missing) | | (unavailable | 11:09:48 | | Index BP | | | | ) | | | 37.4 [ 16.0 | | | | | | | - 34.0 ] | | | | | | | ml/m2 | | | + + +-------+ + + + | | 2021-06-22 | [facility] | LA/Ao 2D | (missing) | (missing) | | (unavailable | 11:09:48 | | 1.0 ratio | | | | ) | | | | | | + + +-------+ + + + | | 2021-06-22 | [facility] | LVEF 50-55% | (missing) | (missing) | | (unavailable | 11:09:48 | | range | | | | ) | | | visually | | | | | | | with the | | | | | | | assistance | | | | | | | of definity | | | | | | | contrast. | | | + + +-------+ + + + | | 2021-06-22 | [facility] | LVIDd 2D | (missing) | (missing) | | (unavailable | 11:09:48 | | 4.8 [ 4.2 - | | | | ) | | | 5.9 ] cm | | | + + +-------+ + + + | | 2021-06-22 | [facility] | LVIDs 2D | (missing) | (missing) | | (unavailable | 11:09:48 | | 3.5 [ 2.3 - | | | | ) | | | 3.9 ] cm | | | + + +-------+ + + + | | 2021-06-22 | [facility] | LVOT Diam | (missing) | (missing) | | (unavailable | 11:09:48 | | 2.4 [ 1.7 - | | | | ) | | | 2.1 ] cm | | | + + +-------+ + + + | | 2021-06-22 | [facility] | LVOT Mean | (missing) | (missing) | | (unavailable | 11:09:48 | | PG 3.00 [ | | | | ) | | | 1.00 - 3.00 | | | | | | | ] mmHg | | | + + +-------+ + + + | | 2021-06-22 | [facility] | LVOT Mean | (missing) | (missing) | | (unavailable | 11:09:48 | | Gary 78.20 [ | | | | ) | | | 60.00 - | | | | | | | 80.00 ] cm/s | | | | | | | | | | + + +-------+ + + + | | 2021-06-22 | [facility] | LVOT Peak | (missing) | (missing) | | (unavailable | 11:09:48 | | PG 5.00 [ | | | | ) | | | 2.00 - 6.00 | | | | | | | ] mmHg | | | + + +-------+ + + + | | 2021-06-22 | [facility] | LVOT Peak | (missing) | (missing) | | (unavailable | 11:09:48 | | Gary 114.00 [ | | | | ) | | | 70.00 - | | | | | | | 110.00 ] | | | | | | | cm/s | | | + + +-------+ + + + | | 2021-06-22 | [facility] | LVOT VTI | (missing) | (missing) | | (unavailable | 11:09:48 | | 27.10 [ | | | | ) | | | 20.00 - | | | | | | | 30.00 ] cm | | | + + +-------+ + + + | | 2021-06-22 | [facility] | LVOT/AV VTI | (missing) | (missing) | | (unavailable | 11:09:48 | | 0.87 | | | | ) | | | | | | + + +-------+ + + + | | 2021-06-22 | [facility] | LVPWd 2D | (missing) | (missing) | | (unavailable | 11:09:48 | | 0.9 [ 0.6 - | | | | ) | | | 1.0 ] cm | | | + + +-------+ + + + | | 2021-06-22 | [facility] | Lateral E` | (missing) | (missing) | | (unavailable | 11:09:48 | | Gary 9.2 [ | | | | ) | | | 10.0 - 15.0 | | | | | | | ] cm/s | | | + + +-------+ + + + | | 2021-06-22 | [facility] | Left | (missing) | (missing) | | (unavailable | ::48 | | Atrium: | | | | ) | | | | | | + + +-------+ + + + | | 2021-06-22 | [facility] | Left | (missing) | (missing) | | (unavailable | :48 | | Ventricle: | | | | ) | | | | | | + + +-------+ + + + | | 2021-06-22 | [facility] | MV A | (missing) | (missing) | | (unavailable | 48 | | Duration | | | | ) | | | 127.0 [ 79.0 | | | | | | | - 176.0 ] | | | | | | | msec | | | + + +-------+ + + + | | 2021-06-22 | [facility] | MV A Peak | (missing) | (missing) | | (unavailable | 48 | | Gary 65.2 [ | | | | ) | | | 100.0 - | | | | | | | 120.0 ] cm/s | | | | | | | | | | + + +-------+ + + + | | 2021-06-22 | [facility] | MV Decel | (missing) | (missing) | | (unavailable | 11:09:48 | | Time 268 [ | | | | ) | | | 104 - 258 ] | | | | | | | msec | | | + + +-------+ + + + | | 2021-06-22 | [facility] | MV E Peak | (missing) | (missing) | | (unavailable | :09:48 | | Gary 64.2 [ | | | | ) | | | 60.0 - 130.0 | | | | | | | ] cm/s | | | + + +-------+ + + + | | 2021-06-22 | [facility] | MV E/A 1.0 | (missing) | (missing) | | (unavailable | 11:09:48 | | [ 0.8 - 1.5 | | | | ) | | | ] ratio | | | + + +-------+ + + + | | 2021-06-22 | [facility] | Measurement | (missing) | (missing) | | (unavailable | 11:09:48 | | Value | | | | ) | | | Normal Range | | | | | | | | | | + + +-------+ + + + | | 2021-06-22 | [facility] | | (missing) | (missing) | | (unavailable | 11::48 | | Measurements | | | | ) | | | : | | | + + +-------+ + + + | | 2021-06-22 | [facility] | Mild aortic | (missing) | (missing) | | (unavailable | 11::48 | | valve | | | | ) | | | regurgitatio | | | | | | | n. | | | + + +-------+ + + + | | 2021-06-22 | [facility] | Mildly | (missing) | (missing) | | (unavailable | 11:09:48 | | dilated left | | | | ) | | | atrium. | | | + + +-------+ + + + | | 2021-06-22 | [facility] | Mitral | (missing) | (missing) | | (unavailable | 11:09:48 | | Valve: | | | | ) | | | | | | + + +-------+ + + + | | 2021-06-22 | [facility] | No | (missing) | (missing) | | (unavailable | 11::48 | | pericardial | | | | ) | | | effusion | | | | | | | noted. | | | + + +-------+ + + + | | 2021-06-22 | [facility] | Normal | (missing) | (missing) | | (unavailable | 11:09:48 | | aortic root. | | | | ) | | | | | | + + +-------+ + + + | | 2021-06-22 | [facility] | Normal left | (missing) | (missing) | | (unavailable | 11:09:48 | | ventricular | | | | ) | | | size. | | | | | | | Normal LV | | | | | | | wall | | | | | | | thicknes | | | | | | | septal | | | | | | | knuckle | | | + + +-------+ + + + | | 2021-06-22 | [facility] | Normal | (missing) | (missing) | | (unavailable | 11:09:48 | | pulmonary | | | | ) | | | artery size. | | | | | | | | | | + + +-------+ + + + | | 2021-06-22 | [facility] | Normal | (missing) | (missing) | | (unavailable | 11:09:48 | | right atrial | | | | ) | | | size and | | | | | | | morphology. | | | + + +-------+ + + + | | 2021-06-22 | [facility] | Normal | (missing) | (missing) | | (unavailable | 11:09:48 | | right | | | | ) | | | ventricular | | | | | | | size and | | | | | | | systolic | | | | | | | function. | | | + + +-------+ + + + | | 2021-06-22 | [facility] | Normal size | (missing) | (missing) | | (unavailable | ::48 | | and normal | | | | ) | | | respiratory | | | | | | | collapse | | | | | | | consistent | | | | | | | with normal | | | + + +-------+ + + + | | 2021-06-22 | [facility] | [facility] | (missing) | (missing) | | (unavailable | 48 | | 1.0 mmHg | | | | ) | | | | | | + + +-------+ + + + | | 2021-06-22 | [facility] | [facility] | (missing) | (missing) | | (unavailable | 48 | | 55.8 [ 40.0 | | | | ) | | | - 80.0 ] | | | | | | | cm/sec | | | + + +-------+ + + + | | 2021-06-22 | [facility] | Patient | (missing) | (missing) | | (unavailable | ::48 | | Name: | | | | ) | | | MALLORY,CORDELL | | | | | | | Nilda CENTENO | | | | | | | Patient ID: | | | | | | | [id number] | | | + + +-------+ + + + | | 2021-06-22 | [facility] | Per the [facility] | (missing) | (missing) | | (unavailable | 11::48 | | contrast | | | | ) | | | protocols, | | | | | | | Definity was | | | | | | | | | | | | | | administered | | | | | | | to enhance | | | + + +-------+ + + + | | 2021-06-22 | [facility] | | (missing) | (missing) | | (unavailable | ::48 | | Pericardium: | | | | ) | | | | | | + + +-------+ + + + | | 2021-06-22 | [facility] | Procedures: | (missing) | (missing) | | (unavailable | ::48 | | | | | | ) | | | | | | + + +-------+ + + + | | 2021-06-22 | [facility] | Pulmonary | (missing) | (missing) | | (unavailable | 11:09:48 | | Artery: | | | | ) | | | | | | + + +-------+ + + + | | 2021-06-22 | [facility] | Pulmonic | (missing) | (missing) | | (unavailable | 11:09:48 | | Valve: | | | | ) | | | | | | + + +-------+ + + + | | 2021-06-22 | [facility] | Quality: | (missing) | (missing) | | (unavailable | ::48 | | Adequate | | | | ) | | | Order | | | | | | | Physician: | | | | | | | MALVIN KHALIL | | | + + +-------+ + + + | | 2021-06-22 | [facility] | RA M Ax | (missing) | (missing) | | (unavailable | :09:48 | | Index 2.4 | | | | ) | | | cm/m2 | | | + + +-------+ + + + | | 2021-06-22 | [facility] | RA Major | (missing) | (missing) | | (unavailable | ::48 | | [place] 5.6 cm | | | | ) | | | | | | + + +-------+ + + + | | 2021-06-22 | [facility] | RV Base 4.1 | (missing) | (missing) | | (unavailable | ::48 | | cm | | | | ) | | | | | | + + +-------+ + + + | | 2021-06-22 | [facility] | Right | (missing) | (missing) | | (unavailable | ::48 | | Atrium: | | | | ) | | | | | | + + +-------+ + + + | | 2021-06-22 | [facility] | Right | (missing) | (missing) | | (unavailable | 11:09:48 | | Ventricle: | | | | ) | | | | | | + + +-------+ + + + | | 2021-06-22 | [facility] | Septal E/E` | (missing) | (missing) | | (unavailable | 11::48 | | 10.2 [ 1.0 | | | | ) | | | - 8.0 ] | | | | | | | ratio | | | + + +-------+ + + + | | 2021-06-22 | [facility] | Septal E` | (missing) | (missing) | | (unavailable | 11::48 | | 6.3 [ 8.0 - | | | | ) | | | 15.0 ] cm/s | | | + + +-------+ + + + | | 2021-06-22 | [facility] | TAPSE 2.1 [ | (missing) | (missing) | | (unavailable | 11::48 | | 1.6 - 3.0 ] | | | | ) | | | cm | | | + + +-------+ + + + | | 2021-06-22 | [facility] | [place], | (missing) | (missing) | | (unavailable | 11:09:48 | | [place] [id number] | | | | ) | | | | | | + + +-------+ + + + | | 2021-06-22 | [facility] | The | (missing) | (missing) | | (unavailable | :09:48 | | interatrial | | | | ) | | | septum is | | | | | | | normal in | | | | | | | appearance. | | | + + +-------+ + + + | | 2021-06-22 | [facility] | The mitral | (missing) | (missing) | | (unavailable | :09:48 | | valve | | | | ) | | | leaflets are | | | | | | | | | | | | | | structurally | | | | | | | normal. | | | + + +-------+ + + + | | 2021-06-22 | [facility] | The | (missing) | (missing) | | (unavailable | 11:09:48 | | pulmonic | | | | ) | | | valve | | | | | | | leaflets are | | | | | | | | | | | | | | structurally | | | | | | | normal. | | | + + +-------+ + + + | | 2021-06-22 | [facility] | The | (missing) | (missing) | | (unavailable | ::48 | | tricuspid | | | | ) | | | valve | | | | | | | leaflets are | | | | | | | | | | | | | | structurally | | | | | | | normal. | | | | | | | Normal | | | | | | | function | | | + + +-------+ + + + | | 2021-06-22 | [facility] | Andres A | (missing) | (missing) | | (unavailable | 11:09:48 | | Samara MD | | | | ) | | | | | | + + +-------+ + + + | | 2021-06-22 | [facility] | Tricuspid | (missing) | (missing) | | (unavailable | 11:09:48 | | Valve: | | | | ) | | | | | | + + +-------+ + + + | | 2021-06-22 | [facility] | branch | (missing) | (missing) | | (unavailable | 11:09:48 | | block. | | | | ) | | | | | | + + +-------+ + + + | | 2021-06-22 | [facility] | did not | (missing) | (missing) | | (unavailable | ::48 | | adequately | | | | ) | | | visualize at | | | | | | | least 2 | | | | | | | contiguous | | | | | | | endocardial | | | + + +-------+ + + + | | 2021-06-22 | [facility] | function. | (missing) | (missing) | | (unavailable | ::48 | | LVEF is | | | | ) | | | visually | | | | | | | estimated to | | | | | | | be 50-55%. | | | | | | | Paradoxical | | | | | | | septal | | | + + +-------+ + + + | | 2021-06-22 | [facility] | | (missing) | (missing) | | (unavailable | 11:09:48 | | intracardiac | | | | ) | | | pathology. | | | | | | | Verbal | | | | | | | consent to | | | | | | | receive | | | | | | | Definity was | | | | | | | | | | + + +-------+ + + + | | 2021-06-22 | [facility] | motion | (missing) | (missing) | | (unavailable | 11::48 | | consistent | | | | ) | | | with | | | | | | | underlying | | | | | | | conduction | | | | | | | system | | | | | | | abnormality. | | | | | | | | | | + + +-------+ + + + | | 2021-06-22 | [facility] | obtained | (missing) | (missing) | | (unavailable | 11:09:48 | | from the | | | | ) | | | patient. | | | + + +-------+ + + + | | 2021-06-22 | [facility] | of the | (missing) | (missing) | | (unavailable | 11:09:48 | | tricuspid | | | | ) | | | valve with | | | | | | | trace | | | | | | | physiologic | | | | | | | regurgitatio | | | | | | | n. Normal | | | + + +-------+ + + + | | 2021-06-22 | [facility] | | (missing) | (missing) | | (unavailable | ::48 | | opacificatio | | | | ) | | | n. | | | + + +-------+ + + + | | 2021-06-22 | [facility] | right | (missing) | (missing) | | (unavailable | :48 | | atrial | | | | ) | | | pressure (<5 | | | | | | | mmHg). | | | + + +-------+ + + + | | 2021-06-22 | [facility] | right | (missing) | (missing) | | (unavailable | ::48 | | ventricular | | | | ) | | | systolic | | | | | | | pressure. | | | + + +-------+ + + + | | 2021-06-22 | [facility] | segments of | (missing) | (missing) | | (unavailable | 11:09:48 | | the LV, or | | | | ) | | | to improve | | | | | | | delineation | | | | | | | of other | | | | | | | suspected | | | + + +-------+ + + + | | 2021-06-22 | [facility] | | (missing) | (missing) | | (unavailable | 11:09:48 | | significance | | | | ) | | | . | | | + + +-------+ + + + | | 2021-06-22 | [facility] | the | (missing) | (missing) | | (unavailable | 11:09:48 | | assessment | | | | ) | | | of LV | | | | | | | systolic | | | | | | | function | | | | | | | when | | | | | | | conventional | | | | | | | evaluation | | | + + +-------+ + + + | | 2021-06-22 | [facility] | which is a | (missing) | (missing) | | (unavailable | 11:09:48 | | normal | | | | ) | | | variant. Low | | | | | | | normal left | | | | | | | ventricular | | | | | | | systolic | | | + + +-------+ + + + + + | Result panel 2 | + + + + + + + + + | | 2022-01-05 | [facility] | YELLOW | (missing) | (missing) | | (unavailable | 09:06 | [facility] | | | | + + + + + + + + + | Result panel 3 | + + + + + + + + + | | 2022-01-05 | [facility] | NORMAL | (missing) | (missing) | | (unavailable | 09:06 | [facility] | | | | + + + + + + + + + | Result panel 4 | + + + + + + + + + | | 2022-01-05 | [facility] | NEGATIVE | (missing) | (missing) | | (unavailable | 09:06 | [facility] | | | | + + + + + + + + + | Result panel 5 | + + + + + + + + + | | 2022-01-05 | [facility] | NEGATIVE | (missing) | (missing) | | (unavailable | 09:06 | [facility] | | | | + + + + + + + + + | Result panel 6 | + + + + + +---------+ + + | | 2022-01-05 | [facility] | CLEAR | (missing) | (missing) | | (unavailable | 09:06 | [facility] | | | | + + + +---------+ + + + + | Result panel 7 | + + + + + + + + + | | 2022-01-05 | [facility] | NEGATIVE | (missing) | (missing) | | (unavailable | 09:06 | [facility] | | | | + + + + + + + + + | Result panel 8 | + + + + + + + + + | | 2022-01-05 | [facility] | NEGATIVE | (missing) | (missing) | | (unavailable | 09:06 | [facility] | | | | + + + + + + + + + | Result panel 9 | + + + + + + + + + | | 2022-01-05 | [facility] | NEGATIVE | (missing) | (missing) | | (unavailable | 09:06 | [facility] | | | | + + + + + + + + + | Result panel 10 | + + + + + +---------+ + + | | 2022-01-05 | [facility] | 1.025 | (missing) | (missing) | | (unavailable | 09:06 | [facility] | | | | + + + +---------+ + + + + | Result panel 11 | + + + + + + + + + | | 2022-01-05 | [facility] | TRACE-I | (missing) | (missing) | | (unavailable | 09:06 | [facility] | | | | + + + + + + + + + | Result panel 12 | + + + + + +-------+ + + | | 2022-01-05 | [facility] | 6.0 | (missing) | (missing) | | (unavailable | 09:06 | [facility] | | | | + + + +-------+ + + + + | Result panel 13 | + + + + + + + + + | | 2022-01-05 | [facility] | NEGATIVE | (missing) | (missing) | | (unavailable | 09:06 | [facility] | | | | + + + + + + + + + | Result panel 14 | + + + + + + + + + | | 2022-01-09 | [facility] | SEE SCANNED | (missing) | (missing) | | (unavailable | 10:45 | [facility] | REPORT | | | | ) | | [facility] | | | | + + + + + + + + + | Result panel 15 | + + + + + + + + + | | 2022-01-16 | [facility] | POSITIVE | (missing) | (missing) | | (unavailable | 12:57 | [facility] | | | | + + + + + + + + + | Result panel 16 | + + + + + + + + + | | 2022-01-16 | [facility] | NEGATIVE | (missing) | (missing) | | (unavailable | 12:57 | [facility] | | | | + + + + + + + + + | Result panel 17 | + + + + + + + + + | | 2022-01-16 | [facility] | NEGATIVE | (missing) | (missing) | | (unavailable | 12:57 | [facility] | | | | + + + + + + + + + | Result panel 18 | + + + + + + + + + | | 2022-01-16 | [facility] | NEGATIVE | (missing) | (missing) | | (unavailable | 12:57 | [facility] | | | | + + + + + + + + + | Result panel 19 | + + + + + + + + + | | 2022-01-16 | [facility] | YELLOW | (missing) | (missing) | | (unavailable | 13:08 | [facility] | | | | + + + + + + + + + | Result panel 20 | + + + + + +---------+ + + | | 2022-01-16 | [facility] | CLEAR | (missing) | (missing) | | (unavailable | 13:08 | [facility] | | | | + + + +---------+ + + + + | Result panel 21 | + + + + + + + + + | | 2022-01-16 | [facility] | NEGATIVE | (missing) | (missing) | | (unavailable | 13:08 | [facility] | | | | + + + + + + + + + | Result panel 22 | + + + + + + + + + | | 2022-01-16 | [facility] | NEGATIVE | (missing) | (missing) | | (unavailable | 13:08 | [facility] | | | | + + + + + + + + + | Result panel 23 | + + + + + + + + + | | 2022-01-16 | [facility] | NEGATIVE | (missing) | (missing) | | (unavailable | 13:08 | [facility] | | | | + + + + + + + + + | Result panel 24 | + + + + + +---------+ + + | | 2022-01-16 | [facility] | 1.020 | (missing) | (missing) | | (unavailable | 13:08 | [facility] | | | | + + + +---------+ + + + + | Result panel 25 | + + + + + +---------+ + + | | 2022-01-16 | [facility] | SMALL | (missing) | (missing) | | (unavailable | 13:08 | [facility] | | | | + + + +---------+ + + + + | Result panel 26 | + + + + + +-------+ + + | | 2022-01-16 | [facility] | 7.5 | (missing) | (missing) | | (unavailable | 13:08 | [facility] | | | | + + + +-------+ + + + + | Result panel 27 | + + + + + + + + + | | 2022-01-16 | [facility] | NEGATIVE | (missing) | (missing) | | (unavailable | 13:08 | [facility] | | | | + + + + + + + + + | Result panel 28 | + + + + + + + + + | | 2022-01-16 | [facility] | NORMAL | (missing) | (missing) | | (unavailable | 13:08 | [facility] | | | | + + + + + + + + + | Result panel 29 | + + + + + + + + + | | 2022-01-16 | [facility] | NEGATIVE | (missing) | (missing) | | (unavailable | 13:08 | [facility] | | | | + + + + + + + + + | Result panel 30 | + + + + + + + + + | | 2022-01-16 | [facility] | NEGATIVE | (missing) | (missing) | | (unavailable | 13:08 | [facility] | | | | + + + + + + + + + | Result panel 31 | + + + + + +--------+ + + | | 2022-01-16 | [facility] | 7-11 | (missing) | (missing) | | (unavailable | 13:08 | [facility] | | | | + + + +--------+ + + + + | Result panel 32 | + + + + + +-------+ + + | | 2022-01-16 | [facility] | 2-3 | (missing) | (missing) | | (unavailable | 13:08 | [facility] | | | | + + + +-------+ + + + + | Result panel 33 | + + + + + + + + + | | 2022-01-16 | [facility] | SQUAMOUS 1+ | (missing) | (missing) | | (unavailable | 13:08 | [facility] | | | | + + + + + + + + + | Result panel 34 | + + + + + + + + + | | 2022-01-16 | [facility] | NONE SEEN | (missing) | (missing) | | (unavailable | 13:08 | [facility] | | | | + + + + + + + + + | Result panel 35 | + + + + + + + + + | | 2022-01-16 | [facility] | NONE SEEN | (missing) | (missing) | | (unavailable | 13:08 | [facility] | | | | + + + + + + + + + | Result panel 36 | + + + + + + + + + | | 2022-01-16 | [facility] | HYALINE 1+ | (missing) | (missing) | | (unavailable | 13:08 | [facility] | | | | + + + + + + + + + | Result panel 37 | + + + + + +------+ + + | | 2022-01-16 | [facility] | No | (missing) | (missing) | | (unavailable | 13:08 | [facility] | | | | + + + +------+ + + + + | Result panel 38 | + + + + + + + + + | | 2022-01-16 | [facility] | CLEAN CATCH | (missing) | (missing) | | (unavailable | 13:08 | [facility] | | | | + + + + + + + Social History No information. Vital Signs + + + +---------+ | date | measurement | value | units | + + + +---------+ | 2022-01-05 00:00 | BMI | 30.4 | kg/m2 | + + + +---------+ | 2022-01-05 00:00 | height_metric | 182.88 | cm | + + + +---------+ | 2022-01-05 00:00 | height_standard | 72 | in | + + + +---------+ | 2022-01-05 00:00 | weight_metric | 101.81 | kg | + + + +---------+ | 2022-01-05 00:00 | weight_standard | 224.45 | lb | + + + +---------+ | 2022-01-09 00:00 | BP_diastolic | 62 | mmHg | + + + +---------+ | 2022-01-09 00:00 | BP_systolic | 129 | mmHg | + + + +---------+ | 2022-01-09 00:00 | heart_rate | 52 | /min | + + + +---------+ | 2022-01-09 00:00 | o2_saturation | 100 | % | + + + +---------+ | 2022-01-09 00:00 | respiration_rate | 16 | /min | + + + +---------+ | 2022-01-09 00:00 | temperature_metric | 36.22 | C | | | | | | + + + +---------+ | 2022-01-09 00:00 | | 97.2 | F | | | temperature_standar | | | | | d | | | + + + +---------+ | 2022-01-16 00:00 | BMI | 30.4 | kg/m2 | + + + +---------+ | 2022-01-16 00:00 | BP_diastolic | 75 | mmHg | + + + +---------+ | 2022-01-16 00:00 | BP_systolic | 124 | mmHg | + + + +---------+ | 2022-01-16 00:00 | heart_rate | 79 | /min | + + + +---------+ | 2022-01-16 00:00 | height_metric | 182.88 | cm | + + + +---------+ | 2022-01-16 00:00 | height_standard | 72 | in | + + + +---------+ | 2022-01-16 00:00 | o2_saturation | 94 | % | + + + +---------+ | 2022-01-16 00:00 | respiration_rate | 18 | /min | + + + +---------+ | 2022-01-16 00:00 | temperature_metric | 37.61 | C | | | | | | + + + +---------+ | 2022-01-16 00:00 | | 99.7 | F | | | temperature_standar | | | | | d | | | + + + +---------+ | 2022-01-16 00:00 | weight_metric | 101.6 | kg | + + + +---------+ | 2022-01-16 00:00 | weight_standard | 223.99 | lb | + + + +---------+ | 2022-01-16 00:00 | weight_standard | 224 | lb | + + + +---------+ | 2022-06-30 00:00 | BMI | 31.3 | kg/m2 | + + + +---------+ | 2022-06-30 00:00 | height_metric | 182.88 | cm | + + + +---------+ | 2022-06-30 00:00 | height_standard | 72 | in | + + + +---------+ | 2022-06-30 00:00 | weight_metric | 104.54 | kg | + + + +---------+ | 2022-06-30 00:00 | weight_standard | 230.47 | lb | + + + +---------+ | 2022-07-04 00:00 | BP_diastolic | 67 | mmHg | + + + +---------+ | 2022-07-04 00:00 | BP_systolic | 115 | mmHg | + + + +---------+ | 2022-07-04 00:00 | heart_rate | 60 | /min | + + + +---------+ | 2022-07-04 00:00 | o2_saturation | 95 | % | + + + +---------+ | 2022-07-04 00:00 | respiration_rate | 14 | /min | + + + +---------+ | 2022-07-04 00:00 | temperature_metric | 36.44 | C | | | | | | + + + +---------+ | 2022-07-04 00:00 | | 97.6 | F | | | temperature_standar | | | | | d | | | + + + +---------+"
--- OUTSIDE RECORDS SUMMARY | ~2023-01-11 | XMS | Continuity of Care Document ---
Demographics + + + | Address | [address] | | | [place] [address] | + + + | Preferred Language | Unknown | + + + | Marital Status | | + + + | Jew Affiliation | Unknown | + + + | Race | White | + + + | Ethnic Group | Not or | + + + Author + + + | Author | [facility] | + + + | Organization | [facility] | + + + | Address | [address] | | | [place] [address] | + + + | Phone | | + + + Care Team Providers + + + + | Care Grinder Set Up Operator Thread Name | Role | Phone | + [...] | 2022-01-12 00:00 | COLESTIPOL HCL | [facility] | + + + + | 2022-01-16 00:00 | COLESTIPOL HCL | [facility] | + + + + | 2013-05-20 00:00 | OXYCODONE | [facility] | | | HCL/ACETAMINOPHEN | | + + + + | 2013-05-20 00:00 | OXYCODONE | [facility] | | | HCL/ACETAMINOPHEN | | + + + + | 2013-05-20 00:00 | OXYCODONE | [facility] | | | HCL/ACETAMINOPHEN | | + + + + | 2022-01-12 00:00 | OXYCODONE | [facility] | | | HCL/ACETAMINOPHEN | | + + + + | 2022-01-16 00:00 | OXYCODONE | [facility] | | | HCL/ACETAMINOPHEN | | + + + + | 2022-07-04 00:00 | OXYCODONE | [facility] | | | HCL/ACETAMINOPHEN | | + + + + | 2022-01-12 00:00 | OXYCODONE | [facility] | | | HCL/ACETAMINOPHEN | | + + + + | 2022-01-16 00:00 | OXYCODONE | [facility] | | | HCL/ACETAMINOPHEN | | + + + + | 2022-07-04 00:00 | OXYCODONE | [facility] | | | HCL/ACETAMINOPHEN | | + + + + | 2022-01-12 00:00 | PLANT STANOL MONY | [facility] | + + + + | 2022-01-16 00:00 | PLANT STANOL MONY | [facility] | + + + + | 2022-01-12 00:00 | Fluticasone Propionate | [facility] | + + + + | 2022-01-16 00:00 | Fluticasone Propionate | [facility] | + + + + | 2022-07-04 00:00 | Fluticasone Propionate | [facility] | + + + + | 2022-01-12 00:00 | BENZONATATE | [facility] | + + + + | 2022-01-16 00:00 | BENZONATATE | [facility] | + + + + | 2022-07-04 00:00 | BENZONATATE | [facility] | + + + + | 2022-01-12 00:00 | CHLORTHALIDONE | [facility] | + + + + | 2022-01-16 00:00 | CHLORTHALIDONE | [facility] | + + + + | 2022-07-04 00:00 | CHLORTHALIDONE | [facility] | + + + + | 2022-01-16 00:00 | LEVOFLOXACIN | [facility] | + + + + | 2022-01-12 00:00 | ASPIRIN | [facility] | + + + + | 2022-01-16 00:00 | ASPIRIN | [facility] | + + + + | 2017-11-14 00:00 | predniSONE | [facility] | + + + + | 2017-11-14 00:00 | predniSONE | [facility] | + + + + | 2017-11-14 00:00 | predniSONE | [facility] | + + + + | 2022-01-12 00:00 | CHOLECALCIFEROL (VITAMIN | [facility] | | | D3) | | + + + + | 2022-01-16 00:00 | CHOLECALCIFEROL (VITAMIN | [facility] | | | D3) | | + + + + | 2022-07-04 00:00 | CHOLECALCIFEROL (VITAMIN | [facility] | | | D3) | | + + + + | 2022-01-12 00:00 | ALBUTEROL SULFATE | [facility] | + + + + | 2022-01-16 00:00 | ALBUTEROL SULFATE | [facility] | + + + + | 2022-07-04 00:00 | ALBUTEROL SULFATE | [facility] | + + + + | 2022-01-12 00:00 | ROSUVASTATIN CALCIUM | [facility] | + + + + | 2022-01-16 00:00 | ROSUVASTATIN CALCIUM | [facility] | + + + + | 2022-07-04 00:00 | ROSUVASTATIN CALCIUM | [facility] | + + + + | 2022-01-12 00:00 | TAMSULOSIN HCL | [facility] | + + + + | 2022-01-16 00:00 | TAMSULOSIN HCL | [facility] | + + + + | 2022-07-04 00:00 | TAMSULOSIN HCL | [facility] | + + + + | 2022-01-12 00:00 | TAMSULOSIN HCL | [facility] | + + + + | 2022-01-16 00:00 | TAMSULOSIN HCL | [facility] | + + + + | 2022-07-04 00:00 | TAMSULOSIN HCL | [facility] | + + + + | 2022-01-12 00:00 | METOPROLOL SUCCINATE | [facility] | + + + + | 2022-01-16 00:00 | METOPROLOL SUCCINATE | [facility] | + + + + | 2022-07-04 00:00 | METOPROLOL SUCCINATE | [facility] | + + + + | 2022-01-12 00:00 | POTASSIUM CITRATE | [facility] | + + + + | 2022-01-16 00:00 | POTASSIUM CITRATE | [facility] | + + + + | 2022-07-04 00:00 | POTASSIUM CITRATE | [facility] | + + + + | 2022-01-12 00:00 | LOSARTAN POTASSIUM | [facility] | + + + + | 2022-01-16 00:00 | LOSARTAN POTASSIUM | [facility] | + + + + | 2022-07-04 00:00 | LOSARTAN POTASSIUM | [facility] | + + + + Problems + + + + | date | description | facility | + + + + | 2014-09-25 00:00 | Dyspnea | [facility] | + + + + | 2014-09-25 00:00 | Dyspnea | [facility] | + + + + | 2014-09-25 00:00 | Dyspnea | [facility] | + + + + | 2014-09-25 00:00 | Abdominal bloating | [facility] | + + + + | 2014-09-25 00:00 | Abdominal bloating | [facility] | + + + + | 2014-09-25 00:00 | Abdominal bloating | [facility] | + + + + | 2014-09-25 00:00 | Weakness | [facility] | + + + + | 2014-09-25 00:00 | Weakness | [facility] | + + + + | 2014-09-25 00:00 | Weakness | [facility] | + + + + | 2020-03-13 00:00 | Calculus of left kidney | [facility] | + + + + | 2020-03-13 00:00 | Calculus of left kidney | [facility] | + + + + | 2020-03-13 00:00 | Calculus of left kidney | [facility] | + + + + | 2020-03-13 00:00 | Painless hematuria | [facility] | + + + + | 2020-03-13 00:00 | Painless hematuria | [facility] | + + + + | 2020-03-13 00:00 | Painless hematuria | [facility] | + + + + | 2021-06-22 10:36:28 | Cardiomyopathy, | [facility] | | | unspecified | | + + + + | 2022-01-16 00:00 | Infection due to severe | [facility] | | | acute respiratory syndrome | | | | coronavirus 2 (SARS-CoV-2) | | + + + + | 2022-01-16 00:00 | Infection due to severe | [facility] | | | acute respiratory syndrome | | | | coronavirus 2 (SARS-CoV-2) | | + + + + Procedures + + + + | date | description | facility | + + + + | 2022-01-09 00:00 | DILATION OF LEFT URETER | [facility] | | | WITH INTRALUMINAL DEVICE, | | | | ENDO | | + + + + | 2022-01-09 00:00 | DILATION OF LEFT URETER | [facility] | | | WITH INTRALUMINAL DEVICE, | | | | ENDO | | + + + + | 2022-01-09 00:00 | EXTIRPATION OF MATTER FROM | [facility] | | | LEFT KIDNEY PELVIS, ENDO | | + + + + | 2022-01-09 00:00 | EXTIRPATION OF MATTER FROM | [facility] | | | LEFT KIDNEY PELVIS, ENDO | | + + + + | 2022-01-09 00:00 | CYSTO/URETERO | [facility] | | | W/LITHOTRIPSY | | + + + + | 2022-01-09 00:00 | CYSTO/URETERO | [facility] | | | W/LITHOTRIPSY | | + [...] | | (unavailable | 11::48 | | [phone] | | | | ) | | | | | | + + +-------+ + + + | | 2021-06-22 | [facility] | 6. Compared | (missing) | (missing) | | (unavailable | 11::48 | | with [facility] | | | | ) | | [...] | | | ) | | | [phone] | | | + + +-------+ + [...] | | | | | | | [phone] | | | + + +-------+ + [...] | | (unavailable | ::48 | | Jewell 5.6 cm | | | | ) [...] + | | 2021-06-22 | [facility] | [place], | (missing) | (missing) | | (unavailable | 11:09:48 | | [place] [id number] | | | | ) | | [...]
[2023-01-11] MEDS ORDERED: NASAL DECONGEST30 MG PO (17:00)
[2023-01-11 17:08] VITALS: BP 130/78
== END 2023-01-11 17:10 | disposition home or self-care (01) ==
LOC: ED 14:50
DX: H69.92 Unspecified Eustachian tube disorder, left ear (principal); Z88.8 Allergy status to other drugs, medicaments and biological substances; Z79.899 Other long term (current) drug therapy
CPT/HCPCS: 70450; A9270

== ENCOUNTER 2023-04-09 07:05 | Day surgery (SDC) | payer OTHER ==
[2023-04-04 13:47] VITALS: BP 109/66
[~2023-04-09] VITALS: Ht 182.9 cm; Wt 105.5 kg
[~2023-04-09 07:05] MED LIST changes: +NASAL DECONGEST30 MG PO
[2023-04-09 07:27] VITALS: BP 125/67
--- NOTE | 2023-04-09 10:33 | NUR ---
04/09/23 1033 Nichelle Handley 1019 PT ARRIVED IN PACU NON RESPONSIVE TO NOXIOUS STIMULI WITH OPA IN PLACE. CHIN LIFT HELD BY RN. 1025 REPOSITIONED PT'S HEAD TO KEEP AIRWAY OPEN, WITHOUT NEEDING A CHIN LIFT. OPA IN PLACE.
--- NOTE | 2023-04-09 11:10 | NUR ---
PATIENT BACK TO ROOM FROM PACU ON . RECEIVED REPORT FROM RONAL MARISCAL. PATIENT IS DROWSY. RESP EVEN AND UNLABORED. RATES PAIN 2/10 AND REPORTS SOME [place] BOTH ARE TOLERABLE AT THIS TIME. PATIENT EATING ICE CHIPS AND TOLERATES THIS. IN ROOM. CALL LIGHT WITHIN REACH.
[2023-04-09 11:13] VITALS: BP 111/60
[2023-04-09 12:16] VITALS: BP 103/58
--- NOTE | 2023-04-09 12:25 | NUR ---
PT RESTING IN BED WITH SPOUSE AT BEDSIDE AWAKE AND ALERT. PT RATES PAIN 2/10 IN RIGHT FLANK AND STATES URGENCY WITH STENT IN PLACE. PT TOLERATES ICE CHIPS AND THAT NAUSEA HAS DISSIPATED. DC CRITERIA EXPLAINED, PROVIDED JELLO AND CRACKERS. CALL LIGHT WITHIN REACH.
[2023-04-09] MEDS ORDERED: CIPRO500 MG PO (13:18)
[2023-04-09] MEDS ORDERED: TRAMADOL HCL50 MG PO (13:18)
[2023-04-09 13:28] VITALS: BP 112/64
--- NOTE | 2023-04-09 15:31 | NUR ---
[id number]: PT STATES URGE TO VOID, SITS AT SIDE OF BED PRIOR TO STANDING AND DENIES DIZZINESS OR NAUSEA WITH POSITION CHANGE. PT AMBULATES WITH STEADY GAIT TO BATHROOM WITH RN ASSIST, ABLE TO VOID 75 MLS [place] RED URINE WITH NO CLOTS NOTED. PT BACK TO RM 4 AND EDUCATED ABOUT WHAT TO EXPECT IN THE NEXT FEW DAYS AND TO CALL DR. VELA IF "KETCHUP-LIKE" CONSISTENCY OR LARGE CLOTS PRESENT. [id number]: DR. VELA NOTIFIED OF PT OUTPUT AND STATES THAT FREQUENT SMALL VOIDS IS ACCEPTABLE DUE TO STENT IN PLACE. DR. VELA ORDERS PT TO BE BLADDER SCANNED TO ENSURE EMPTY BLADDER. PT BLADDER SCANNED MULTIPLE TIMES TO SHOW 0 MLS. PT ENCOURAGED TO GET DRESSED AT THIS TIME, SPOUSE REMAINS IN ROOM AT BEDSIDE. 1328: DC INSTRUCTIONS PRESENTED VERBALLY AND WRITTEN TO PT AND SPOUSE. PRESCTIPTION PROVIDED IN DC FOLDER AND PT AWARE OF NEED TO PHYSICALLY TAKE TO PHARMACY TO HAVE FILLED. PT DC FROM DS RM 4 VIA WC TO SPOUSE WAITING IN PERSONAL VEHICLE AT HOSPITAL ENTRANCE TO HOME.
--- NOTE | 2023-04-10 18:12 | OR ---
[facility] [address] [place], [place] [address] Signed DATE OF OPERATION: 04/09/2023 SURGEON: Merry Vela MD PREOPERATIVE DIAGNOSES: 1. Gross hematuria. 2. Intermittent right-sided flank pain. 3. A 10 mm right renal calculus. POSTOPERATIVE DIAGNOSES: 1. Gross hematuria. 2. Intermittent right-sided flank pain. 3. A 10 mm right renal calculus. 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 PROCEDURES: 1. Diagnostic cystoscopy with right retrograde pyelogram. 2. Attempted right ureteroscopy. 3. Insertion of indwelling right ureteral stent. ANESTHESIA: General. ESTIMATED BLOOD LOSS: None. COMPLICATIONS: None. SPECIMENS: None. DRAINS: A 6 x 28 cm double-J ureteral stent, Coloplast. INDICATIONS FOR PROCEDURE: Mr. Tejada is a very pleasant 62-year-old gentleman, who I know well. He has a long-standing history of recurrent nephrolithiasis and has undergone ureteroscopy in the past. He recently presented to me for evaluation of gross hematuria and intermittent right-sided flank pain. He underwent a complete hematuria workup, which was mostly Electronically Signed By: MERRY VELA MD 04/10/231811 PATIENT NAME: FREDERIC TEJADA OPERATIVE REPORT DATE OF : 58 REPORT #: [id number] PHYSICIAN: MERRY VELA MD PCP: RFEDERIC TIJERINA MD REPORT IS CONFIDENTIAL AND NOT TO BE RELEASED WITHOUT AUTHORIZATION [facility] [address], [place] [address] Signed normal, except for the presence of bilateral 1 cm renal calculi. He chose a staged ureteroscopy for extraction of both stones. Because he was experiencing more right-sided flank pain, we chose to address the right renal calculus first. He presents today to undergo elective right ureteroscopy. OPERATIVE FINDINGS: 1. On cystoscopy, there was no evidence of any suspicious masses, lesions, or stones. Bilateral ureteral orifices are in their normal anatomic location effluxing clear urine. 2. Right retrograde pyelogram reveals a diffusely narrow/diminutive right ureter with no filling defects or other abnormalities. Right retrograde pyelogram does reveal an obvious 1 cm stone present within the right renal pelvis. No other filling defects are noted, as well as no calyceal blunting. 3. I attempted passage of a ureteral access sheath, both 05/14 and 04/12 size. I was able to pass the smaller ureteral access sheath into the very distal aspect of the ureter. I attempted to pass a flexible ureteroscope up into the right ureter and the ureter was very narrow, making it very difficult to pass the ureteroscope up to the remainder of the right ureter and into the kidney. I made the decision at that time to place a stent and bring the patient back in one week to perform definitive ureteroscopy. 4. A 6 x 28 cm double-J ureteral stent was inserted into the right collecting system under direct visualization without difficulty. DESCRIPTION OF PROCEDURE: After informed consent was obtained, the patient was taken back to the operating room. He was transferred from the [facility] to the operating table, where general anesthesia was induced. He was placed in the dorsal lithotomy position and his genitalia prepped and draped in a standard sterile fashion. Using a 30-degree lens on a 22.5-Uruguayan introducer, rigid cystoscope was inserted through his urethra into his bladder under direct visualization. Panendoscopic views of bladder then obtained. Please see above findings. Attention was turned to the right ureteral orifice. A cone-tipped catheter was used to perform a right retrograde pyelogram. Please see above findings. I then passed a 0.035 Sensor wire up into the right collecting system and confirmed placement of the wire on fluoroscopy. Over the wire, I initially passed an 11/13 ureteral access sheath; however, the sheath only went up by about 2 cm. I removed the sheath and then tried a Coloplast 10/12 ureteral access sheath and again was unsuccessful. With the 10/12 sheath passed up by about 4-5 cm, I had tried to pass the ureteroscope through the sheath and into the more proximal ureter. The ureter was narrow enough that I was not able to pass the ureteroscope up into the more proximal portion of the ureter. At this point in time, I decided to abort today's procedure and place a stent that will passively dilate the ureter for safer access next week. I removed the ureteroscope and placed a 0.035 Sensor wire back into the right collecting system and removed the ureteral access sheath. Over the wire, I passed a 6 x 28 cm double-J Coloplast ureteral stent into the right collecting system. This was performed via direct visualization. Electronically Signed By: MERRY VELA MD 04/10/231811 PATIENT NAME: FREDERIC TEJADA OPERATIVE REPORT DATE OF : 58 REPORT #: [id number] PHYSICIAN: MERRY VELA MD PCP: FREDERIC TIJERINA MD REPORT IS CONFIDENTIAL AND NOT TO BE RELEASED WITHOUT AUTHORIZATION [address] [address] Signed Once I pulled the wire, an adequate proximal coil was noted in the upper calyx of the right kidney. An adequate distal coil was seen on cystoscopy. The patient's bladder was then drained and the cystoscope was removed. The procedure was then terminated. The patient tolerated the procedure well without any complication. He will now be transferred to the Postanesthesia Care Unit in stable condition. DISPOSITION: I discussed the details of today's procedure with the patient's and answered all of her questions. I told her that I was unable to safely access his kidney today because his ureter is just a little bit too narrow. This is likely congenital in nature as I do not see any obvious evidence of any true ureteral stenosis. The stent will remain in place for one week, and he will return to the operating room on April 16 to undergo definitive right ureteroscopy with stone extraction and right ureteral stent exchange. MD ISA Carranza/ANIRUDH /[id number] Copies: ~ Electronically Signed By: MERRY VELA MD 04/10/23 181 PATIENT NAME: FREDERIC TEJADA OPERATIVE REPORT DATE OF : 58 REPORT #: [id number] PHYSICIAN: MERRY VELA MD PCP: FREDERIC TIJERINA MD REPORT IS CONFIDENTIAL AND NOT TO BE RELEASED WITHOUT AUTHORIZATION
== END 2023-04-09 13:40 | disposition home or self-care (01) ==
LOC: DS 07:05
PROVIDERS: ATTEND Urology
PROC: BT1DZZZ Fluoroscopy of Right Kidney, Ureter and Bladder (ICD-10-PCS; principal; 2023-04-09 09:30)
DX: N20.0 Calculus of kidney (principal); N13.5 Crossing vessel and stricture of ureter without hydronephrosis; R31.0 Gross hematuria; Z88.8 Allergy status to other drugs, medicaments and biological substances
CPT/HCPCS: 00910; 74420; C1769; C2617; J0690; J1100; J1885; J2001; J2250; J2405; J2704; J3010; J7121; Q9967

== ENCOUNTER 2023-04-19 05:45 | Day surgery (SDC) | payer OTHER ==
[2023-04-16 09:25] VITALS: BP 122/72
--- NOTE | 2023-04-16 11:55 | NUR ---
[id number]: PT RESTING IN BED WITH SPOUSE AT BEDSIDE. PT UPDATED WITH SURGERY DELAY AND COMFORTABLE AT THIS TIME. ENC TO USE CALL LIGHT WITH ANY NEEDS.
--- NOTE | 2023-04-16 12:56 | NUR ---
PT USES CALL LIGHT, HAS URGE TO VOID. PT IV SL AND PT AMBULATES TO BR WITH STEADY GAIT. PT BACK TO DS RM 12 AND NOTIFIED APPROXIMATE TIME FOR SURGERY PER DR. VELA. CALL LIGHT WITHIN REACH, SPOUSE AT BEDSIDE.
[2023-04-16 14:55] VITALS: BP 108/61
--- NOTE | 2023-04-16 15:22 | NUR ---
1455: PT RESTING IN BED AWAKE AND ALERT PLAYING GAMES ON PERSONAL CELL PHONE. SPOUSE IN ROOM AT BEDSIDE. PT PROVIDED WARM BLANKET PER REQUEST, ENCOURAGED TO USED CALL LIGHT WITH ANY NEEDS.
--- NOTE | 2023-04-16 16:23 | NUR ---
[id number]: DR. VELA AND CARLITO ZHAO IN TO PT ROOM TO DISCUSS CANCELLATION DUE TO HOSPITAL STAFFING/SPACE AND SAFETY REASONS. RESCHEDULED FOR Sunday04/19/23. PT AND SPOUSE VERY CALM AND UNDERSTANDING OF SITUATION. IV REMOVED WNL, COBAN PRESSURE DRESSING PLACED AND ENCOURAGED TO REMOVE IN 15 MINUTES. PT AND SPOUSE EXIT FROM RM 12 AMBULATORY TO HOME.
[~2023-04-19] VITALS: Ht 182.9 cm; Wt 107.0 kg
[~2023-04-19 05:45] MED LIST changes: +CIPRO500 MG PO; +TRAMADOL HCL50 MG PO
[2023-04-19 06:01] VITALS: BP 107/73
--- NOTE | 2023-04-19 09:50 | NUR ---
04/19/23 0950 [place] Chua 0919- PT ARRIVES TO PACU, SEMI ORTIZ POSITION. OPA IN PLACE WITH O2 AT 10 L PER MASK. PT NON REACTIVE TO STIMULUS, ABD SOFT AND NON DISTENDED. URETER STENT IN PLACE AND SECURED TO PENIS WITH STERI STRIPS, NO DRAINAGE. ALL MONITORS APPLIED. 0923- PT COUGHING AND HAS GURGLING SOUNDS IN AIRWAY. PT SUCTIONED AND OPA REMOVED AT THIS TIME. PT FOLLOWED COMMANDS TO OPEN MOUTH. WILL CONTINUE TO MONITOR. O2 REMAINS IN PLACE BY MASK. 0929- PT REACTIVE AND NODS HEAD TO QUESTIONS. NO WORDS AT THIS TIME, PT DOES NOT OPEN EYES. C/O PAIN AND NAUSEA. WILL TREAT NAUSEA AT THIS TIME AND REASSESS PAIN WHEN PT MORE AWAKE. RT CALLED TO SET UP PT CPAP. 0934- RT AT BEDSIDE, PT CPAP ON AND 4L O2, SAT 90-93%. 0938- PT MEDICATED WITH ZOFRAN, 3RD LITER LR STARTED TKO AT THIS TIME.
[2023-04-19 10:21] VITALS: BP 132/73
--- NOTE | 2023-04-19 10:23 | NUR ---
LE 1020: PT IS BACK TO DS FROM PACU. HE ARRIVES WITH CPAP ON. HE DOES REPORT THAT HE DOESN'T FEEL LIKE HIS BREATHING IS VERY GOOD, HE IS SATING AT 97% OR ABOVE ON ROOM AIR. HE DOES REPORT SOME NAUSEA WELL. WATER ON BEDSIDE TABLE. CALL LIGHT WITHIN REACH. IS AT THE BEDSIDE. DC CRITERIA REVIEWED WITH PT AND .
[2023-04-19 11:16] VITALS: BP 121/68
--- NOTE | 2023-04-19 11:17 | NUR ---
LEATHA 1105: PT TURNS ON HIS CALL LIGHT, REPORTING THAT HE NEEDS TO VOID. HE IS STILL FEELING A LITTLE WOOZY AND TIRED. HE DOES WANT TO GET UP AND GO TO THE BATHROOM. HE IS HELPED UP AT THE SIDE OF THE BED AND ASSISTED TO THE BATHROOM. HE IS ABLE TO VOID 400MLS OF BLOOD TINGED URINE. HE IS HELPED BACK TO BED. HE REPORTS THAT HE JUST FEELS TIRED AND COLD. HE IS TUCKED BACK INTO BED, CPAP IS PUT BACK ON, AND HE IS GIVEN WARM BLANKETS. HE HAS TOLERATED A COUPLE SIPS OF WATER. DENIES WANTING TO EAT ANYTHING RIGHT NOW. CALL LIHT WITHIN REACH. AT THE BEDSIDE.
--- NOTE | 2023-04-19 11:25 | NUR ---
LE 1120: CARLITO ZHAO, SURGERY THIRD SHIFT LIEUTENANT, STOPS IN TO VISIT WITH PT AND HIS . CHECKING IN AFTER ALEX NÚÑEZ RN ROUNDED ON THEM EARLIER THIS MORNING.
--- NOTE | 2023-04-19 12:23 | NUR ---
PT IS ASLEEP AND RESTING COMFORTABLY. WILL OMIT VITAL SIGNS AT THIS TIME. WILL TURN CIVIL MANAGER LIGHT IF HE WAKES AND NEEDS ANYTHING.
[2023-04-19 13:57] VITALS: BP 121/73
--- NOTE | 2023-04-19 14:01 | NUR ---
LEATHA 1355: PT REPORTS THAT HE IS FEELING BETTER, LESS NAUSEA, LESS PAIN. HE STATES THAT HE IS JUST REALLY TIRED. HE IS EDUCATED THAT PART OF THAT IS THE RESULT OF THE ANESTHESIA HE RECIEVED TODAY. THIS RN EDUCATES PT AND , THAT THE MAIN CONCERN IS BEING ABLE TO SAFELY WALK FROM THE CAR TO THE HOUSE, AND THAT THEY FEEL COMFORTABLE AND SAFE ENOUGH TO DO THAT. HE IS GOING TO GET DRESSED TO SEE HOW HE FEELS BEING UP AND MOVING. HE IS EDUCATED TO STAY SEATED MUCH POSSIBLE AND TRY NOT TO BEND OVER AT THE WAIST. THEY WILL EITHER TURN ON THE CALL LIGHT OR OPEN THE CURTAIN WHEN HE IS DRESSED AND WE WILL REASSESS AT THAT TIME.
--- NOTE | 2023-04-19 14:39 | NUR ---
LE 1410: PT TURNS ON HIS CALL LIGHT. HE IS DRESSED AND INDICATES THAT HE WOULD LIKE TO GO HOME. PT AND ARE GIVEN VERBAL AND WRITTEN DC INSTRUCTIONS. THEY BOTH VERBALIZE UNDERSTAND. QUESTIONS ARE ASKED AND ANSWERED. LE 1415: PT IS TAKEN TO PERSONAL VEHICLE VIA WC. HE IS ABLE TO TRANSFER HIMSELF WITHOUT ISSUES.
--- NOTE | 2023-04-19 18:35 | OR ---
[facility] [address] [place], [place] [address] Signed DATE OF OPERATION: 04/19/2023 SURGEON: Merry Vela MD PREOPERATIVE DIAGNOSES: 1. 1 cm right renal calculus, status post cystoscopy with right ureteral stent insertion. 2. Intermittent right flank pain, secondary to #1. POSTOPERATIVE DIAGNOSES: 1. 1 cm right renal calculus, status post cystoscopy with right ureteral stent insertion. 2. Intermittent right flank pain, secondary to #1. NAMES OF PROCEDURES: 1. Diagnostic cystoscopy with right retrograde pyelogram. 2. Right flexible nephroureteroscopy with laser lithotripsy and basket extraction of stone fragments. 3. Exchange of a 5 x 26 double-J ureteral stent into the right collecting system. ANESTHESIA: General. ESTIMATED BLOOD LOSS: Minimal. COMPLICATIONS: None. SPECIMENS: Fragments of right renal calculus sent to the lab for stone analysis. DRAINS: A 5 x 26 cm double-J ureteral stent inserted into the right collecting system. INDICATIONS FOR PROCEDURE: Mr. Tejada is a very pleasant 62-year-old gentleman with a long-standing history of recurrent nephrolithiasis. He recently presented to me to undergo a workup for painless gross hematuria. CT IVP performed not long afterwards revealed no evidence of any suspicious renal masses or lesions, however, he was found to have bilateral 1 cm nonobstructing renal calculi. He had been experiencing intermittent right flank pain and so the patient chose to have his 1 cm right renal calculus extracted 1st. He does Electronically Signed By: MERRY VEAL MD 04/19/23 1835 PATIENT NAME: FREDERIC TEJADA OPERATIVE REPORT DATE OF : 58 REPORT #: [id number] PHYSICIAN: MERRY VELA MD PCP: FREDERIC TIJERINA MD REPORT IS CONFIDENTIAL AND NOT TO BE RELEASED WITHOUT AUTHORIZATION [facility] [address] [place], [place] [address] Signed plan to have the 1 cm left renal calculus extracted later this year. He presents today to undergo definitive extraction of his right renal stone. OPERATIVE FINDINGS: 1. On cystoscopy, there was no evidence of any suspicious masses, lesions, or stones within the bladder. Bilateral ureteral orifices are in their normal anatomic location. There was an indwelling stent present in the right collecting system and the distal coil is visualized on cystoscopy. 2. Right flexible nephroscopy reveals a large renal calculus present within the renal pelvis of the right kidney. This stone fragmented quite easily on a setting of 0.4 joules and 12 hertz. The stone was mostly dusted using a 400 micron fiber. There were a few larger fragments that were extracted successfully from the right renal pelvis using a Zero tip basket. Overall, 100% of the stone burden was either dusted or extracted successfully today. 3. At the end of the procedure, a fresh 5 x 26 cm double-J ureteral stent was inserted into the right collecting system with a string attached. An adequate proximal coil was noted within the right renal pelvis and an adequate distal coil was noted on cystoscopy. DESCRIPTION OF PROCEDURE: After informed consent was obtained, the patient was taken back to the operating room. He was transferred from the [facility] to the operating room table, where general anesthesia was induced. He was placed in the dorsal lithotomy position and his genitalia were prepped and draped in the standard sterile fashion. Using a 30-degree lens on a 22.5-Arabic introducer, rigid cystoscope was inserted through his urethra and into his bladder under direct visualization. Panendoscopic views of the bladder were then obtained. Please see above findings. Attention was turned to the indwelling right ureteral stent. Graspers were used to remove the stent to the level of the urethral meatus. I passed a Sensor wire through the lumen of the stent and up into the right collecting system. The stent was then removed fully intact. Over the Sensor wire, an 11/13 ureteral access sheath was passed into the right collecting system. Proper placement of the sheath was confirmed on fluoroscopy. A flexible ureteroscope was then inserted through the sheath and up into the right collecting system. Prior to passing the ureteroscope, a retrograde pyelogram was performed via the sheath and did reveal the outline of the right kidney as well as the large filling defect within the right renal pelvis consistent with a stone. There was no evidence of any calyceal blunting or dilation of the right kidney noted. Once the flexible ureteroscope was passed through the proximal ureter and into the right renal pelvis, I did easily see the large right renal calculus present within the renal pelvis. A holmium laser was used to fragment the stone on dusting using dusting settings. 95% of the stone was successfully dusted into very fine stone dust. About 5% of the stone was extracted from the right renal pelvis using a Zero tip basket without difficulty. At the end of procedure, I was confident that I did not see any significantly sized fragments that would cause the Electronically Signed By: MERRY VELA MD 04/19/23 1835 PATIENT NAME: FREDERIC TEJADA OPERATIVE REPORT DATE OF : 58 REPORT #: [id number] PHYSICIAN: MERRY VELA MD PCP: FREDERIC TIJERINA MD REPORT IS CONFIDENTIAL AND NOT TO BE RELEASED WITHOUT AUTHORIZATION [facility] [address] [place], [place] [address] Signed patient any discomfort passing down the ureter. I removed the ureteroscope and passed a 0.035 Sensor wire through the sheath and up into the right renal pelvis. The ureteral access sheath was then removed fully intact. Over the wire, I passed a 5 x 26 cm double-J ureteral stent into the right collecting system under direct visualization. Once I pulled the wire, an adequate proximal coil was noted within the right renal pelvis. An adequate distal coil was noted on cystoscopy. I took the extracted stone material and placed it in a specimen cup to be sent to the lab for stone analysis. The patient's bladder was drained using the cystoscope and the stent string was secured to the patient's phallus. The procedure was then terminated. The patient tolerated the procedure well without any complication. He will now be transferred to the postanesthesia care unit in stable condition. DISPOSITION: I discussed the details of today's procedure with the patient's and answered all of her questions. He is deferring any additional prescriptions or pain medication today. He will be given a fresh prescription for Cipro 500 mg p.o. b.i.d. for a total of 7 days. The plan is for the patient to undergo left ureteroscopy with laser lithotripsy and basket extraction of his 1 cm calculus on June 04, 2023. He will be scheduled to return one week prior to sign consents for surgery and to schedule his pre-admission testing. I told his today that he may remove his indwelling ureteral stent using the string attached in five days, which would be April 24, 2023. MD ISA Carranza/ANIRUDH /[id number] Copies: ~ Electronically Signed By: MERRY VELA MD 04/19/23 1835 PATIENT NAME: FREDERIC TEJADA OPERATIVE REPORT DATE OF : 58 REPORT #: [id number] PHYSICIAN: MERRY VELA MD PCP: FREDERIC TIJERINA MD REPORT IS CONFIDENTIAL AND NOT TO BE RELEASED WITHOUT AUTHORIZATION
[2023-04-23 08:04] LABS: CALCULI MASS 29 mg (())
== END 2023-04-19 14:15 | disposition home or self-care (01) ==
LOC: DS 05:45
PROVIDERS: ATTEND Urology
PROC: 0TFB8ZZ Fragmentation in Bladder, Via Natural or Artificial Opening Endoscopic (ICD-10-PCS; principal; 2023-04-19 07:30)
DX: N20.0 Calculus of kidney (principal)
CPT/HCPCS: 00910; 74420; 82365; C1769; C2617; J0131; J0690; J1100; J1790; J1885; J2001; J2250; J2405; J2704; J2765; J3010; J3475; J3490; J7121; Q9967

== ENCOUNTER 2023-06-04 06:58 | Day surgery (SDC) | payer OTHER ==
[2023-05-29 13:40] VITALS: BP 125/73
[~2023-06-04] VITALS: Ht 182.9 cm; Wt 103.8 kg
[2023-06-04 07:12] VITALS: BP 123/77
--- NOTE | 2023-06-04 10:44 | NUR ---
06/04/23 1044 Rosalba Schultz 1028 PT TO PACU FROM OR PER STRETCHER. RESPIRATIONS RIGOBERTO AND UNLABORED. OS MASK ON AT 6L. 1030 PT AWAKENS, BUT THEN FALLS BACK ASLEEP. STENT STRING TO PENIS ATTACHED BY STERI STRIPS. 1044 PT ASLEEP, RESPIRATIONS RIGOBERTO AND UNLABORED.
[2023-06-04 11:55] VITALS: BP 138/74
--- NOTE | 2023-06-04 12:39 | NUR ---
1145: PT RETURNS TO UNIT VIA STRETCHER FROM PACU, DROWSY ON ARRIVAL. VSS, RESP EVEN AND UNLABORED. ANTIEMETIC PREVIOUSLY GIVEN IN PACU AND PT REPORTS IMPROVING. DENIES PAIN. ICE WATER AND CRACKERS AT THE BEDSIDE. POC DISCUSSED AND PT AGREEABLE. ATTENTIVE AT THE BEDSIDE. NO NEEDS, CALL LIGHT WITHIN REACH
[2023-06-04 12:50] VITALS: BP 134/74
--- NOTE | 2023-06-04 13:04 | NUR ---
1250: PT REMAINS DROWSY BUT ANSWERS QUESTIONS APPROPRIATELY. VSS, RESP EVEN AND UNLABORED. DENIES PAIN AND NAUSEA. JANET SMALL SIPS OF WATER. NO NEEDS VOICED, CALL LIGHT WITHIN REACH
--- NOTE | 2023-06-04 14:31 | NUR ---
LE 1300 PATIENT CALL LIGHT ON. PATIENT UP TO THE RESTROOM. VOIDED 200 MLS OF CLAYTON COLORED URINE. PATIENT STATES "IT HURT LESS THAN LAST TIME I HAD SURGERY TO PEE." PATIENT BACK TO ROOM. PATIENT GETTING DRESSED AT BEDSIDE. CALL LIGHT WITHIN REACH NO FUTHER NEEDS. NO QUESTIONS AT THIS TIME.
--- NOTE | 2023-06-04 15:05 | NUR ---
1345: DC INSTRUCTIONS PROVIDED AND DISCUSSED ORDERED. PT VOICES UNDERSTANDING AND DENIES QUESTIONS AND CONCERNS AT THIS TIME. SL REMOVED WITH CATH TIP INTACT AND PRESSURE APPLIED TO SITE, WNL. PT WHEELD OFF OF UNIT AT THIS TIME. TRANSFERS INTO VEHICLE INDEPENDENTLY AND APPROPRIATELY. NO PHYSICAL S/S OF DISTRESS AT THIS TIME
--- NOTE | 2023-06-04 15:32 | OR ---
[facility] [address] [place], [place] [address] Signed DATE OF OPERATION: 06/04/2023 SURGEON: Merry Vela MD PREOPERATIVE DIAGNOSIS: A 1.5 cm left renal calculus. POSTOPERATIVE DIAGNOSIS: A 1.5 cm left renal calculus. NAMES OF PROCEDURES: 1. Diagnostic cystoscopy with left retrograde pyelogram. 2. Left flexible nephroureteroscopy with laser lithotripsy and basket extraction of stone fragments. 3. Insertion of ureteral stent into left collecting system. ANESTHESIA: General. ESTIMATED BLOOD LOSS: None. COMPLICATIONS: None. SPECIMENS: Fragments of left renal calculus sent to the lab for stone analysis. DRAINS: A 6 x 28 cm double J ureteral stent inserted into the left collecting system. INDICATIONS FOR PROCEDURE: Mr. Tejada is a very pleasant 63-year-old gentleman who is well-known to me. He has a long history of recurrent bilateral nephrolithiasis and recently underwent extraction of a large right renal calculus after he presented to undergo evaluation for gross hematuria. He now presents today to have his nonobstructing 1.5 cm left renal calculus extracted. We again discussed the risks and benefits of the procedure and he has agreed to proceed. OPERATIVE FINDINGS: Electronically Signed By: MERRY VELA MD 06/04/23 1532 PATIENT NAME: FREDERIC TEJADA OPERATIVE REPORT DATE OF : 58 REPORT #: [id number] PHYSICIAN: MERRY VELA MD PCP: FREDERIC TIJERINA MD REPORT IS CONFIDENTIAL AND NOT TO BE RELEASED WITHOUT AUTHORIZATION [facility] [address] [place], [place] [address] Signed 1. On cystoscopy, there was no evidence of any suspicious masses, lesions, or stones. Bilateral ureteral orifices are in their normal anatomic location. 2. Left retrograde pyelogram revealed a patent left ureter with no dilation or stricture. His left kidney is not dilated as I do not see evidence of blunting of the calices. There is a large approximately 1.5 cm stone present within the left renal pelvis that is easily seen on fluoroscopy. 3. Left flexible nephroureteroscopy was performed and the stone was easily seen within the left renal pelvis. The stone was fragmented using a 400 micron fiber at 12 and 0.4 settings. The stone fragmented quite easily. 90% of the stone burden was fragmented into small sand like fragments no greater than 1 mm. There were a couple of slightly larger fragments about 1.5 mm that were extracted and sent to the lab for analysis. 4. The patient's left renal pelvis was copiously irrigated to allow for some of the stone dust to pass down the ureter. Once that was completed, I passed a 6 x 28 cm double-J ureteral stent into the left collecting system without difficulty. DESCRIPTION OF PROCEDURE: After informed consent was obtained, the patient was taken back to the operating room. [facility] table, where general anesthesia was induced. He was placed in the dorsal lithotomy position and his genitalia were prepped and draped in standard sterile fashion. Using a 30-degree lens on a 22.5-Icelandic introducer, rigid cystoscope was inserted through his urethra and into his bladder under direct visualization. Panendoscopic views of the bladder were then obtained. Please see above findings. I then turned my attention to the left ureteral orifice where I passed a cone-tipped catheter up and placed it into the distal left ureter. A left retrograde pyelogram was performed. Please see above findings. I removed the cone-tipped catheter and passed a 0.035 Sensor wire up into the left ureter and into the kidney. Successful passage of the wire was confirmed on fluoroscopy. Over the wire, I passed an 05/14 ureteral access sheath into the left collecting system under fluoroscopic guidance. The sheath passed relatively easily and without incident. I then repeated a retrograde pyelogram through the sheath, which gave me a better look at the left renal calculus and calices. Please see above findings. I passed the flexible ureteroscope through the sheath and up into the proximal ureter and left renal pelvis. The large left renal calculus was easily seen. It was fragmented using a 400 micron holmium laser at 12 and 0.4 settings. The stone fragmented easily. A good deal of the stone was made into stone dust about half a mm or smaller. The slightly larger fragments that were around 1 to 1.5 mm were extracted using a Zero tip basket without difficulty. I then copiously irrigated the left renal pelvis in order to promote migration of the small stone fragments down the left ureter and out of the kidney. I removed the ureteral access sheath after placing a 0.035 wire into the left renal pelvis. With the wire already in good position, I passed a 6 x 28 cm double-J ureteral stent into the left collecting system under direct visualization. The stent passed easily and when I pulled the wire, an adequate coil was noted in the left renal pelvis. Electronically Signed By: MERRY VELA MD 06/04/23 1532 PATIENT NAME: FREDERIC TEJADA OPERATIVE REPORT DATE OF : 58 REPORT #: [id number] PHYSICIAN: MERRY VELA MD PCP: FREDERIC TIJERINA MD REPORT IS CONFIDENTIAL AND NOT TO BE RELEASED WITHOUT AUTHORIZATION [facility] [address] [place], [place] [address] Signed An adequate coil was also noted on the cystoscopy. There is a string attached to the stent that was then secured to the patient's phallus. The procedure was then terminated. The patient tolerated the procedure well without any complication. He will now be transferred to the postanesthesia care unit in stable condition. DISPOSITION: I discussed the details of today's procedure with the patient's and answered all of her questions. The patient may remove his indwelling ureteral stent using the string attached in five days. He will be sent home today with oxycodone 5 mg one tablet p.o. q.6 hours p.r.n. pain, dispense #30 along with Macrobid 100 mg p.o. b.i.d. for a total of 7 days. He has been scheduled to see me in clinic on June 13 for a followup, at which time we will discuss the stone results and he will likely be started on allopurinol for prevention of uric acid stones. MD ISA Carranza/ANIRUDH /[id number] Copies: ~ Electronically Signed By: MERRY VELA MD 06/04/23 1532 PATIENT NAME: FREDERIC TEJADA OPERATIVE REPORT DATE OF : 58 REPORT #: [id number] PHYSICIAN: MERRY EVLA MD PCP: FREDERIC TIJERINA MD REPORT IS CONFIDENTIAL AND NOT TO BE RELEASED WITHOUT AUTHORIZATION
[2023-06-07 07:13] LABS: CALCULI MASS 12 mg (())
== END 2023-06-04 13:45 | disposition home or self-care (01) ==
LOC: OPS 06:58 → DS 06:58 → OPS 09:30
PROVIDERS: ATTEND Urology
PROC: 0TC18ZZ Extirpation of Matter from Left Kidney, Via Natural or Artificial Opening Endoscopic (ICD-10-PCS; principal; 2023-06-04 09:30)
PROC: 0T778DZ Dilation of Left Ureter with Intraluminal Device, Via Natural or Artificial Opening Endoscopic (ICD-10-PCS; 2023-06-04 09:30)
DX: N20.0 Calculus of kidney (principal); R31.0 Gross hematuria; Z87.442 Personal history of urinary calculi
CPT/HCPCS: 00910; 74420; 82365; C1769; C2617; J0131; J0690; J1100; J1790; J1885; J2001; J2405; J2704; J3010; J7121; Q9967

== ENCOUNTER 2023-06-22 07:46 | Emergency (ER) | payer OTHER ==
[~2023-06-22] VITALS: Ht 182.9 cm; Wt 105.6 kg
[2023-06-22 08:19] LABS: BILIRUBIN, URINE NEGATIVE (negative); BLOOD/HGB, URINE SMALL (Negative); KETONE, URINE NEGATIVE (Negative); LEUK ESTERASE, URINE NEGATIVE (negative); NITRITE, URINE NEGATIVE (negative)
[2023-06-22] MEDS ORDERED: LEVOFLOXACIN750 MG PO (08:20)
[2023-06-22 08:23] LABS: BACTERIA, URINE RARE /hpf (negative); EPITHELIAL CELLS, URINE SQUAMOUS 1+ /lpf (0-1+); RED BLOOD CELLS, URINE 21-40 /hpf (0-5); REFLEX CULTURE, URINE No (No)
[2023-06-22 08:43] VITALS: BP 138/80
== END 2023-06-22 08:40 | disposition home or self-care (01) ==
LOC: ED 07:46
PROVIDERS: Emergency Medicine
DX: N41.9 Inflammatory disease of prostate, unspecified (principal); Z88.8 Allergy status to other drugs, medicaments and biological substances; Z79.899 Other long term (current) drug therapy; Z87.442 Personal history of urinary calculi
CPT/HCPCS: 51798; 81001; 99283

== ENCOUNTER 2024-09-14 16:51 | Emergency (ER) | payer MEDICARE ==
[~2024-09-14] VITALS: Ht 182.9 cm; Wt 105.0 kg
[~2024-09-14 16:51] MED LIST changes: +LEVOFLOXACIN750 MG PO
[2024-09-14 17:28] LABS: CORONAVIRUS COVID-19 AG NEGATIVE (NEGATIVE); INFLUENZA A AG NEGATIVE (NEGATIVE); INFLUENZA B AG NEGATIVE (NEGATIVE)
[2024-09-14] MEDS ORDERED: COLESTIPOL HCL500 GM (17:53)
[2024-09-14 18:09] LABS: BASOPHILS 0.5 % (0-2); EOSINOPHILS 1.6 % (0-6); HEMATOCRIT 40.4 % (35.0-50.0); HEMOGLOBIN 14.1 g/dL (12.0-18.0); LYMPHOCYTES 24.4 % (24-44); MCH 32.3 (27-36); MCHC 34.9 g/dl (30-36); MCV 92.7 fl (81-99); MONOCYTES 9.1 % (0-12); NEUTROPHILS 64.4 % (39-80); PLATELET COUNT 202 K/uL (140-440); RBC 4.35 M/ul (4.3-5.7); RDW 13.9 (10.5-15.0)
[2024-09-14 18:29] LABS: ALBUMIN 3.7 g/dL (3.4-5.0); ALBUMIN/GLOBULIN RATIO 1.12 (1.1-2.4); ANION GAP 11.8 (7-21); BILIRUBIN, TOTAL 0.4 mg/dL (0.2-1.0); BUN/CREATININE RATIO 20.73 (6.0-28.6); CALCIUM 8.8 mg/dL (8.5-10.1); CREATININE, SERUM 0.82 mg/dL (0.70-1.30); POTASSIUM 3.8 mmol/L (3.5-5.1)
[2024-09-14 19:39] VITALS: BP 119/71
--- NOTE | 2024-09-15 17:38 | EKG ---
[facility] [address] [facility] [place] [address] Signed Sinus rhythm with 1st degree AV block Left bundle branch block Abnormal ECG When compared with ECG of 04-APR-2023 13:57, No significant change was found Confirmed by Niranjan Vieyra DO ([id number]) on 09/15/2024 5:38:40 PM Electronically Signed By: NIRANJAN VIEYRA DO 09/15/24 1738 PATIENT NAME: FREDERIC TEJADA Electrocardiogram DATE OF : 58 PHYSICIAN: NIRANJAN VIEYRA DO REPORT #: [id number] REPORT IS CONFIDENTIAL AND NOT TO BE RELEASED WITHOUT AUTHORIZATION
== END 2024-09-14 19:47 | disposition home or self-care (01) ==
LOC: ED 16:51
PROVIDERS: Emergency Medicine
DX: R53.1 Weakness (principal); E78.5 Hyperlipidemia, unspecified; I10 Essential (primary) hypertension; Z79.899 Other long term (current) drug therapy; Z88.1 Allergy status to other antibiotic agents
CPT/HCPCS: 36415; 71045; 80053; 83735; 83880; 84484; 85025; 93005; 93010; 99285-25

== ENCOUNTER 2024-11-02 18:54 | Emergency (ER) | payer MEDICARE ==
[~2024-11-02] VITALS: Ht 182.9 cm; Wt 104.0 kg
[~2024-11-02 18:54] MED LIST changes: +COLESTIPOL HCL500 GM
[2024-11-02 19:32] LABS: BASOPHILS 0.6 % (0-2); EOSINOPHILS 2.2 % (0-6); HEMATOCRIT 39.9 % (35.0-50.0); HEMOGLOBIN 14.7 g/dL (12.0-18.0); LYMPHOCYTES 29.1 % (24-44); MCH 33.4 (27-36); MCHC 36.7 g/dl (30-36); MCV 90.9 fl (81-99); MONOCYTES 11.2 % (0-12); NEUTROPHILS 56.9 % (39-80); PLATELET COUNT 195 K/uL (140-440); RBC 4.39 M/ul (4.3-5.7); RDW 13.4 (10.5-15.0)
[2024-11-02 19:42] LABS: ALBUMIN 3.9 g/dL (3.4-5.0); ALBUMIN/GLOBULIN RATIO 1.22 (1.1-2.4); ANION GAP 12.6 (7-21); BILIRUBIN, TOTAL 0.8 mg/dL (0.2-1.0); BUN/CREATININE RATIO 19.19 (6.0-28.6); CALCIUM 8.5 mg/dL (8.5-10.1); CREATININE, SERUM 0.99 mg/dL (0.70-1.30); POTASSIUM 3.6 mmol/L (3.5-5.1); PROTEIN, TOTAL 7.1 g/dL (6.4-8.2)
[2024-11-02 20:08] LABS: BILIRUBIN, URINE NEGATIVE (negative); BLOOD/HGB, URINE TRACE-I (Negative); KETONE, URINE TRACE (Negative); LEUK ESTERASE, URINE NEGATIVE (negative); NITRITE, URINE NEGATIVE (negative)
[2024-11-02 20:19] LABS: BACTERIA, URINE RARE /hpf (negative); CASTS, URINE NONE SEEN \\lpf; CRYSTALS, URINE NONE SEEN (0-1+); EPITHELIAL CELLS, URINE SQUAMOUS 1+ /lpf (0-1+); WHITE BLOOD CELLS, URINE 0-1 /HPF (0-5)
[2024-11-02 20:20] LABS: COLLECTION TYPE, URINE CLEAN CATCH; REFLEX CULTURE, URINE No (No)
[2024-11-02 21:30] VITALS: BP 110/74
[2024-11-02] MEDS ORDERED: CYCLOBENZAPRINE HCL 10 MG HOME.PACK PO ONE (21:30)
[2024-11-02] MEDS ORDERED: methylPREDNISolone 4 MG HOME.PACK PO ONE (21:30)
== END 2024-11-02 21:30 | disposition home or self-care (01) ==
LOC: ED 18:54
PROVIDERS: Family Medicine
DX: S29.012A Strain of muscle and tendon of back wall of thorax, initial encounter (principal); I10 Essential (primary) hypertension
CPT/HCPCS: 36415; 72131; 73660; 80053; 81001; 83690; 85025; 99284-25